=== PATIENT | female | born 1950 ===

== ENCOUNTER 2017-02-06 21:37 | Emergency (ER) | payer MEDICARE, OTHER ==
--- NOTE | 2017-02-06 22:24 | ED PDOC ---
HPI: Hypertension/Hypotension Time Seen by Provider: 02/06/17 22:05 Chief Complaint (Nursing): High Blood Pressure Chief Complaint (Provider): hypertension History Per: Patient History/Exam Limitations: no limitations Onset/Duration Of Symptoms: Days (2 weeks), Waxing/Waning Current Symptoms Are (Timing): Still Present Associated Symptoms: Headache Additional History Per: Patient, Family Additional Complaint(s): 66 y/o female history of hypertension, hyperlipidemia presents for eval of hypertension x 2 weeks. As per daughter, blood pressure medications were recently changed by primary doctor, but patient notes no improvement with new medications. Patient notes constant left frontal pressure headache today. Denies fever, nausea/vomiting, extremity numbness/weakness, chest pain, shortness of breath, palpitations, leg pain/swelling. Past Medical History Reviewed: Historical Data, Nursing Documentation, Vital Signs Vital Signs: Last Vital Signs Temp 98.2 F 02/06/17 22:01 Pulse 66 02/06/17 22:13 Resp 16 02/06/17 22:01 BP 178/91 H 02/06/17 22:13 Pulse Ox 100 02/06/17 22:01 - Medical History PMH: HTN, Hypercholesterolemia - Family History Family History: States: No Known Family Hx - Social History Current smoker - smoking cessation education provided: No Alcohol: None Drugs: Denies - Allergies Allergies/Adverse Reactions: Allergies Allergy/AdvReac Type Severity Reaction Status Date / Time shellfish derived Allergy RASH Verified 02/06/17 22:01 Review of Systems ROS Statement: Except As Marked, All Systems Reviewed And Found Negative Neurological: Positive for: Headache Physical Exam - Reviewed Nursing Documentation Reviewed: Yes Vital Signs Reviewed: Yes - Physical Exam Appears: Positive for: Well, Non-toxic, No Acute Distress Head Exam: Positive for: ATRAUMATIC, NORMAL INSPECTION, NORMOCEPHALIC Skin: Positive for: Normal Color Eye Exam: Positive for: Normal appearance ENT: Positive for: Normal ENT Inspection Cardiovascular/Chest: Positive for: Regular Rate, Rhythm Respiratory: Positive for: Normal Breath Sounds Gastrointestinal/Abdominal: Positive for: Normal Exam Back: Positive for: Normal Inspection Extremity: Positive for: Normal ROM Neurologic/Psych: Positive for: Alert, Oriented - Laboratory Results Result Diagrams: 02/06/17 22:25 02/06/17 22:25 - ECG ECG: Positive for: Viewed By Me (reviewed by ED attending) ECG Rhythm: Positive for: Sinus Rhythm O2 Sat by Pulse Oximetry: 100 - Progress ED Course And Treament: labs, ekg, CT head, Tylenol PO EXAM: CT Head Without Intravenous Contrast EXAM DATE/TIME: 02/06/2017 10:18 PM CLINICAL HISTORY: 66 years old, female; Pain; Headache; Headache not specified; Additional info: Headache, hypertension. Sent phy. Doc. TECHNIQUE: Axial computed tomography images of the head/brain without intravenous contrast. All CT scans at this facility use one or more dose reduction techniques, viz.: automated exposure control; ma/kV adjustment per patient size (including targeted exams where dose is matched to indication; i.e. head); or iterative reconstruction technique. Coronal and sagittal reformatted images were created and reviewed. COMPARISON: No relevant prior studies available. FINDINGS: No intracranial hemorrhage. No intracranial edema. No evidence of infarct. The sinuses and mastoid air cells are clear. IMPRESSION: No acute findings. On re-eval, patient states headache improved. BP improved. Patient educated on findings, discharged with instructions to follow up PMD 2-3 days. Return to ED for worsening/concerning symptoms. Disposition - Clinical Impression Clinical Impression: Hypertension, Headache - Patient ED Disposition Is Patient to be Admitted: No Counseled Patient/Family Regarding: Studies Performed, Diagnosis, Need For Followup - Disposition Disposition: Routine/Home Disposition Time: 23:51 Condition: IMPROVED Instructions: Acute Headache (ED), Hypertension (ED) Print Language: GREEK
[2017-02-06 22:29] LABS: BASO % 0.5 % (0.0-2.0); EOS # 0.1 K/uL (0.0-0.7); HEMATOCRIT 37.7 % (34.0-47.0); LYMPH # 2.9 K/uL (1.0-4.3); MEAN CELL VOLUME 88.2 fl (81.0-99.0); MEAN CORPUSCULAR HEMOGLOBIN 29.4 pg (27.0-31.0); MEAN CORPUSCULAR HGB CONC 33.3 g/dL (33.0-37.0); MONO # 0.9 K/uL (0.0-0.8); MONO % 8.6 % (0.0-10.0); NEUT # 6.3 K/uL (1.8-7.0); NEUT % 61.9 % (50.0-75.0); NRBC % 0.1 % (0.0-0.0); RED CELL DISTRIBUTION WIDTH 13.6 % (11.5-14.5); WHITE BLOOD COUNT 10.2 K/uL (4.8-10.8)
[2017-02-06 22:42] LABS: BLOOD UREA NITROGEN 15 mg/dl (7-17); CALCIUM 8.9 mg/dL (8.4-10.2); CARBON DIOXIDE 26 mmol/L (22-30); CHLORIDE 103 mmol/L (98-107); GFR AFRICAN-AMERICAN > 60; GLUCOSE,RANDOM 97 mg/dL (65-105); POTASSIUM 3.4 MMOL/L (3.6-5.0); SODIUM 139 mmol/l (132-148)
[2017-02-06] MEDS ORDERED: Potassium Chloride 20 mEq ER Tab PO ONE ×2 (23:04→23:14)
--- NOTE | 2017-02-06 23:06 | CT ---
EXAM: CT Head Without Intravenous Contrast EXAM DATE/TIME: 02/06/2017 10:18 PM CLINICAL HISTORY: 66 years old, female; Pain; Headache; Headache not specified; Additional info: Headache, hypertension. Sent phy. Doc. TECHNIQUE: Axial computed tomography images of the head/brain without intravenous contrast. All CT scans at this facility use one or more dose reduction techniques, viz.: automated exposure control; ma/kV adjustment per patient size (including targeted exams where dose is matched to indication; i.e. head); or iterative reconstruction technique. Coronal and sagittal reformatted images were created and reviewed. COMPARISON: No relevant prior studies available. FINDINGS: No intracranial hemorrhage. No intracranial edema. No evidence of infarct. The sinuses and mastoid air cells are clear. IMPRESSION: No acute findings.
[2017-02-06 23:18] VITALS: BP 149/78; PULSE 69; RESP 18; TEMP 97.8
[2017-02-06 23:52] VITALS: O2SAT 100
--- NOTE | 2017-02-08 11:34 | CARD ---
APPROVED REPORT EKG Measurement Heart [id number] <Conclusion> Normal sinus rhythm Normal ECG
== END 2017-02-07 00:04 | disposition home or self-care (01) ==
LOC: H.ER 21:37
DX: I10 Essential (primary) hypertension (principal); R51 Headache

== ENCOUNTER 2017-08-27 08:59 | Inpatient (IN) | payer MEDICARE ==
[2017-08-27 09:34] VITALS: BMI 29.5
[2017-08-27] MEDS ORDERED: Succinylcholine 200 mg/10 ml Inj IV ONE (10:09)
[2017-08-27] MEDS ORDERED: Midazolam 2 MG/2 ML VIAL ONE (10:09)
[2017-08-27] MEDS ORDERED: ePHEDrine 50 mg/ml Inj ONE (10:09)
[2017-08-27] MEDS ORDERED: Rocuronium 10 mg/ml (5 ml) ONE (10:09)
[2017-08-27] MEDS ORDERED: Propofol 10 mg/ml Inj (20 ML) ONE (10:09)
[2017-08-27] MEDS ORDERED: Lidocaine 4% (Laryng-O-Jet) Kit MM ONE (10:09)
[2017-08-27] MEDS ORDERED: Lactated Ringer's 1,000 ML IV ONE ×2 (10:20→12:30)
[2017-08-27] MEDS ORDERED: Lidocaine 2% Inj (20ml) ONE (10:24)
[2017-08-27] MEDS ORDERED: Absorbable Gelatin Sponge Size 100 ONE (10:24)
[2017-08-27] MEDS ORDERED: Bacitracin Ointment 30 GM TUBE ONE (10:24)
[2017-08-27] MEDS ORDERED: Bupivacaine 0.5% Inj(30mL) ONE (10:24)
[2017-08-27] MEDS ORDERED: Thrombin Topical 5,000 Int Units Spray Kit ONE (10:25)
[2017-08-27] MEDS ORDERED: EPINEPHrine 1 mg/ml (1:1000) Inj ONE (11:40)
[2017-08-27] MEDS ORDERED: Bupivacaine 0.5% 50 ML IJ ONE (11:45)
[2017-08-27] MEDS ORDERED: EPINEPHrine 1 mg/ml (1:1000) Inj IV ONE (11:45)
[2017-08-27] MEDS ORDERED: HYDROmorphone 0.5 mg/0.5 ml ISec IVP PRN (13:02)
--- NOTE | 2017-08-27 13:45 | PCM.SURG1 ---
Surgeon's Initial Post Op Note - Surgeon's Notes Surgeon: Karl Rod MD Manager Interface: Marine Harris PA-C; Daysi Jon Type of Anesthesia: General Endo Pre-Operative Diagnosis: right knee severe osteoarthritis Operative Findings: see op report Post-Operative Diagnosis: same as pre-op dx Operation Performed: R TKR Specimen/Specimens Removed: right knee bone and soft tissue Estimated Blood Loss: EBL {In ML}: 100 Date of Surgery/Procedure: 08/27/17 Time of Surgery/Procedure: 10:00
--- NOTE | 2017-08-27 14:26 | RAD ---
PROCEDURE: Right Knee Radiographs. HISTORY: s/p RTKR COMPARISON: Right knee series 2117. FINDINGS: BONES: PA seen to be status post right total knee replacement with distal femoral and proximal tibial prosthetic components in good apparent position. Postoperative soft tissue changes seen anteriorly and laterally predominantly but some are also seen medially. Skin jayy noted anteriorly. No fracture, subluxation or dislocation appreciated in the interval. JOINTS: As above. JOINT EFFUSION: As above. OTHER FINDINGS: None. IMPRESSION: Status post right total knee replacement with limited postoperative soft tissue changes as described above. No subluxation dislocation or interval fracture identified.
--- NOTE | 2017-08-27 15:31 | OP ---
PROCEDURE DATE: 08/27/2017 ATTENDING SURGEON: Karl Rod MD CLOTH REELER: Marine Harris PA-C PREOPERATIVE DIAGNOSES: Right knee osteoarthritis. POSTOPERATIVE DIAGNOSIS: Right knee osteoarthritis. PROCEDURE: Right total knee replacement. IMPLANTS SIZE: [employer]. Size 3 femur, size 3 tibia, 9 mm polyethylene insert, 31 mm patella button. ANESTHESIA TYPE: General. ESTIMATED BLOOD LOSS: 50 mL. SPECIMENS: None. COMPLICATIONS: None. HISTORY: The patient with prolonged history of right knee pain progressively getting worse despite extensive conservative management, which included activity modification, injections, anti-inflammatory modification and physical therapy. X-rays had revealed advanced arthritis. Patient was indicated for total knee replacement due to continued pain and limited mobility. I had a detailed discussion with the patient in the office explaining the nature of the surgery, alternatives of surgery, risks and benefits, rehabilitation protocol and surgical markings. Risks of surgery include but not limited to continued pain, lack of motion, infection, vascular injury, DVT / PE, nerve injury including peroneal nerve dysfunction, reflex sympathetic dystrophy, compartment syndrome, unforeseen medical and/or anesthesia complications, limb loss, and even . The patient expressed an understanding of the risks and possible benefits of the procedure, and is also aware of the alternatives to surgery. PROCEDURE: On the day of the surgery, the patient was admitted to pre-operative holding area. A laterality sheet was completed confirming the correct operative site. The correct surgical knee was marked in the holding area and informed consent was signed from the patient. Once again, I reviewed the risks and benefits of the surgery with the patient in detail. These risks include but are not limited to continued pain, lack of motion, infection, vascular injury, DVT / PE, nerve injury including peroneal nerve dysfunction, reflex sympathetic dystrophy, symptomatic hardware, need for further procedure and surgeries, instability, iatrogenic fractures, compartment syndrome, unforeseen medical and/or anesthesia complications, limb loss, and even . The patient expressed an understanding of the risks and possible benefits of the procedure, also aware of the alternatives to surgery and signed the informed consent. The patient was transported to the operating room and placed in the supine position, general anesthesia was obtained. A padded tourniquet was applied to patient's operative thigh and appropriate prophylactic antibiotics were given. The operative leg was draped and prepped in standard sterile manner. Timeout was completed, confirming patient's right knee to be the correct operative site. Using an Esmarch, the extremity was exsanguinated and tourniquet was inflated to 350 mmHg. The surgical incision markings were made using patella border, tibial tubercle, patella and quadriceps tendon. Using a 10 blade, a midline incision was made. Skin dissection was taken until the prepatellar fascia was identified and the corners of the patellar tendon were marked for proper closure at the end of the procedure. Using a fresh 10 blade, a medial parapatellar arthrotomy was performed. The knee was exposed in the standard manner. The deep MCL was elevated for exposure, medial and lateral menisci were removed, ACL and PCL were also transected. The tibia was subluxed anteriorly. Planned tibial cut was made with power saw, using extra-medullary guide, perpendicular to mechanical axis of the tibia. After the cut was made, the alignment was also checked and was found to be appropriate. Tibial cut surface was measured with trial base plate and it was noted that size 2 tibial baseplate was provide sufficient coverage without overhang. Tibial component was externally rotated and marked. Next, the knee was placed into 90 degrees of flexion. A drill hole was made within the femoral notch anterior to PCL insertion for placement of intramedullary femoral sary. Intramedullary femoral sary was inserted within the femoral canal and planned distal femoral cut was made. After the cut, knee was brought into full extension. Spacer blocks were used to check the extension balancing both in full extension and 30 degrees of flexion. It was found that size 9 mm trial spacer block allowed full extension with symmetric varus and valgus balancing. Next we proceed with Patella resurfacing. [place] patella width was found to 25 mm. Using the free-hand technique the arthritic patella surface was resected. Patella was sized using the guide and it was noted that 32 mm Patella dome button would be appropriate for the patient. Next the size of femoral component was determined using the posterior referencing guide. It was noted that a femur would be appropriate for this patient without causing any significant notching. A 4 x 1 cutting block was placed and flexion gap balancing was checked. The flexion gap was found to be symmetric to the extension gap. Anterior and posterior condyle, anterior and posterior chamfer cuts were made. Next, appropriate size box cut for femoral component was prepared using the guide. The femoral trial component was impacted onto the distal femur. Appropriate size tibial trial component was also placed on the cut surface of the tibia. Using the drill and punch, keel for tibial implant was prepared. Trial tibial tray was secured onto the tibia using pins. Different size trial polyethylene inserts were secured on to the trial tibial tray to critically assess the following parameters: Full range of motion, extension and flexion gap balancing, mid-flexion stability, anterior and posterior drawer, and patellar tracking. All parameter were found to be satisfactory with size 9 mm insert. All the trial components were removed. Implants were opened on the back table. Cement was mixed and we proceed with cement fixation of the implants. Tibial tray, femoral component and patellar dome button were secured with cement. Polyethylene insert was secured onto the tibial tray using locking mechanism. The knee was reduced and brought into full extension. Cement was allowed to harden until final component fixation. Knee was taken through the final range of motion for stability testing, and found to be satisfactory. 60 cc of custom cocktail mixture was injected into posterior capsule, MCL, LCL, quadriceps tendon, and patellar tendon. Wound was copiously irrigated with sterile antibiotic solution using pulse lavage. Arthrotomy was closed using heavy suture and wound was closed in standard manner. Patient was extubated, transferred to stretcher and taken to the recovery room. Post-operative instructions were provided, physical therapy consult was requested along with DVT prophylaxis and appropriate pain medications. During this procedure, I was assisted Marine Harris, who assisted in positioning the patient on the operating room table as well as transferring the patient from the operating room table to the recovery room stretcher. In addition, Marine Harris,assisted me during the actual operative procedure by positioning, protecting critical neurovascular structures, exposure of the joint, and proper positioning of the implants. The presence of Marine Harris,as my operative offset assistant press operator was medically necessary to ensure the utmost safety of the patient in the pre, intra-, and post-operative periods. Karl Rod MD CELINE
[2017-08-27] MEDS ORDERED: ceFAZolin 1 GM in Sodium Chloride 0.9% 100 ML IVPB ONE ×2 (16:30→22:30)
--- NOTE | 2017-08-27 17:33 | CP.PCM.HP ---
History of Present Illness - History of Present Illness History of Present Illness: 67 y/o F with PMHx of HTN and O/A is admitted to hospital s/p RTKR for knee O/ A. Patient denies LE pain, vomiting, nausea, abd pain, headache. As per patient she has been suffering from R/knee pain for about 1 year and difficulty walking. Denies LE numbness or tingling. Patient has no other complains. She is compliant with her home meds for HTN and high cholesterol. Present on Admission - Present on Admission Any Indicators Present on Admission: No Review of Systems - Review of Systems All systems: reviewed and no additional remarkable complaints except (those described on HPI) Past Patient History - Past Medical History & Family History Past Medical History?: Yes - Past Social History Smoking Status: Never Smoked Alcohol: None Drugs: Denies - CARDIAC Hx Hypercholesterolemia: Yes Hx Hypertension: Yes - PULMONARY Hx Respiratory Disorders: No - NEUROLOGICAL Hx Neurological Disorder: No - HEENT Hx HEENT Problems: No - RENAL Hx Chronic Kidney Disease: No - ENDOCRINE/METABOLIC Hx Endocrine Disorders: No - HEMATOLOGICAL/ONCOLOGICAL Hx Blood Disorders: No - MUSCULOSKELETAL/RHEUMATOLOGICAL Hx Musculoskeletal Disorders: Yes Hx Osteoarthritis: Yes Hx Unsteady Gait: Yes - GASTROINTESTINAL Hx Gastrointestinal Disorders: No - GENITOURINARY/GYNECOLOGICAL Hx Genitourinary Disorders: No - PSYCHIATRIC Hx Psychophysiologic Disorder: No Hx Substance Use: No - SURGICAL HISTORY Hx Surgeries: Yes Other/Comment: R shoulder rotator cuff repair. Carpal tunnel release both hands - ANESTHESIA Hx Anesthesia: Yes Hx Anesthesia Reactions: No Hx Malignant Hyperthermia: No Has any member of the family had a problem w/ anesthesia?: No Meds Allergies/Adverse Reactions: Allergies Allergy/AdvReac Type Severity Reaction Status Date / Time shellfish derived Allergy RASH Verified 08/27/17 09:32 Physical Exam - Constitutional Appears: Non-toxic, No Acute Distress - Head Exam Head Exam: ATRAUMATIC - Eye Exam Eye Exam: EOMI, PERRL - ENT Exam ENT Exam: Mucous Membranes Moist - Neck Exam Neck exam: Negative for: Tenderness - Respiratory Exam Respiratory Exam: Clear to Auscultation Bilateral, NORMAL BREATHING PATTERN. absent: Decreased Breath Sounds, Rales, Rhonchi, Wheezes, Respiratory Distress - Cardiovascular Exam Cardiovascular Exam: REGULAR RHYTHM, +S1, +S2. absent: Gallop, Systolic Murmur - GI/Abdominal Exam GI & Abdominal Exam: Normal Bowel Sounds, Soft. absent: Distended, Firm, Guarding, Rigid, Tenderness - Extremities Exam Extremities exam: Positive for: normal capillary refill, pedal pulses present. Negative for: calf tenderness Additional comments: Move toes B/L. NO signs of acute neurovascular compromise - Neurological Exam Neurological exam: Alert, Oriented x3 - Psychiatric Exam Psychiatric exam: Normal Affect, Normal Mood - Skin Skin Exam: Normal Color, Warm Results - Vital Signs Recent Vital Signs: Last Vital Signs Temp 98.4 F 08/27/17 17:10 Pulse 85 08/27/17 17:10 Resp 19 08/27/17 17:10 BP 109/67 08/27/17 17:10 Pulse Ox 96 08/27/17 15:42 - Labs Labs: Laboratory Results - last 24 hr 08/27/17 08/27/17 09:55 10:40 Blood Type AB POSITIVE Blood Type Confirm AB POSITIVE Antibody Screen Negative Crossmatch See Detail BBK History Checked No verified bt Assessment & Plan - Assessment and Plan (Free Text) Assessment: S/P RTKR POD0 C/W pain control Advance diet as tolerated Supportive measures PT Ortho consult HTN Controlled C/W home meds Monitor DVT prophylaxis ASA 325 mg BID
[2017-08-27] MEDS: oxyCODONE 10 mg ER Tab (oxyCONTIN) PO SCH (21:33)
[2017-08-28] MEDS ORDERED: Benzocaine/Menthol (Cepacol) Lozenge PO ONE (01:27)
[2017-08-28 06:45] LABS: BLOOD UREA NITROGEN 15 mg/dl (7-17); CALCIUM 8.2 mg/dL (8.4-10.2); GFR AFRICAN-AMERICAN > 60; GFR NON-AFRICAN AMERICAN 55
[2017-08-28 06:49] LABS: BASO % 0.1 % (0.0-2.0); HEMOGLOBIN 10.7 g/dL (12.0-16.0); LYMPH # 2.1 K/uL (1.0-4.3); LYMPH % 12.2 % (20.0-40.0); MEAN CELL VOLUME 88.1 fl (81.0-99.0); MEAN CORPUSCULAR HEMOGLOBIN 29.9 pg (27.0-31.0); MEAN PLATELET VOLUME 8.4 fl (7.2-11.7); MONO # 1.3 K/uL (0.0-0.8); MONO % 7.5 % (0.0-10.0); NEUT # 13.6 K/uL (1.8-7.0); NEUT % 80.2 % (50.0-75.0); RBC 3.58 Mil/uL (3.80-5.20); RED CELL DISTRIBUTION WIDTH 13.3 % (11.5-14.5)
[2017-08-28] MEDS: oxyCODONE 10 mg ER Tab (oxyCONTIN) PO SCH ×2 (08:15→21:21)
--- NOTE | 2017-08-28 08:42 | CP.PCM.PN ---
Subjective - Date & Time of Evaluation Date of Evaluation: 08/28/17 Time of Evaluation: 08:40 - Subjective Subjective: Orthopedic follow up, patient seen and examined with Dr. Rod Patient states she has only a little pain. Denies CP/SOB/dizziness, no new complaints. Objective - Vital Signs/Intake and Output Vital Signs (last 24 hours): Temp Pulse Resp BP Pulse Ox 98.9 F 80 20 119/67 95 08/28/17 03:33 08/28/17 08:16 08/28/17 03:33 08/28/17 08:16 08/28/17 03:33 - Medications Medications: Current Medications Acetaminophen (Tylenol 325mg Tab) 325 mg PO Q4 PRN PRN Reason: pain1-3 Amlodipine Besylate (Norvasc) 5 mg PO DAILY [facility] Last Admin: 08/28/17 08:16 Dose: 5 mg Aspirin (Aspirin) 325 mg PO BID [facility] Last Admin: 08/28/17 08:16 Dose: 325 mg Atenolol (Tenormin) 50 mg PO DAILY [facility] Atorvastatin Calcium (Lipitor) 20 mg PO HS [facility] Last Admin: 08/27/17 21:34 Dose: 20 mg Celecoxib (Celebrex) 100 mg PO Q12 [facility] Last Admin: 08/28/17 08:16 Dose: 100 mg Hydrochlorothiazide (Hydrodiuril) 25 mg PO DAILY [facility] Last Admin: 08/28/17 08:16 Dose: 25 mg Ketorolac Tromethamine (Toradol) 15 mg IM Q8 [facility] Stop: 08/29/17 23:59 Last Admin: 08/28/17 08:19 Dose: 15 mg Oxycodone HCl (Oxycontin Extended Release Tab) 10 mg PO Q12 [facility] Stop: 08/30/17 21:01 Last Admin: 08/28/17 08:15 Dose: 10 mg Oxycodone/Acetaminophen (Percocet 5/325 Mg Tab) 1 tab PO Q4 PRN PRN Reason: pain4-6 Stop: 08/30/17 14:07 Potassium Chloride (K-Dur 20 Meq Er Tab) 20 meq PO ONCE ONE Stop: 08/28/17 08:39 - Labs Labs: 08/28/17 05:35 08/28/17 05:35 - Extremities Exam Additional comments: RLE: +ROM ankle/toes, sensation intact +DP/PT pulses calves soft NT neg homans Assessment and Plan (1) Primary osteoarthritis of right knee Assessment & Plan: POD#1 s/p R TKR -PT/OT -VTE proph -d/c planning -encourage OOB labs in am replace K d/w Dr. Rod, agrees with above Status: Acute
--- NOTE | 2017-08-28 10:33 | CP.PCM.PN ---
Subjective - Date & Time of Evaluation Date of Evaluation: 08/28/17 Time of Evaluation: 07:35 - Subjective Subjective: Stable. alert and not acute distress. C/o L/leg pain since this morning. Denies vomiting, nausea, CP, SOB, changes in urination or stools. Tolerating PO. Afebrile Objective - Vital Signs/Intake and Output Vital Signs (last 24 hours): Temp Pulse Resp BP Pulse Ox 98.9 F 80 20 119/67 95 08/28/17 03:33 08/28/17 08:16 08/28/17 03:33 08/28/17 08:16 08/28/17 03:33 - Medications Medications: Current Medications Acetaminophen (Tylenol 325mg Tab) 325 mg PO Q4 PRN PRN Reason: pain1-3 Amlodipine Besylate (Norvasc) 5 mg PO DAILY [facility] Last Admin: 08/28/17 08:16 Dose: 5 mg Aspirin (Aspirin) 325 mg PO BID [facility] Last Admin: 08/28/17 08:16 Dose: 325 mg Atenolol (Tenormin) 50 mg PO DAILY [facility] Atorvastatin Calcium (Lipitor) 20 mg PO HS [facility] Last Admin: 08/27/17 21:34 Dose: 20 mg Celecoxib (Celebrex) 100 mg PO Q12 [facility] Last Admin: 08/28/17 08:16 Dose: 100 mg Hydrochlorothiazide (Hydrodiuril) 25 mg PO DAILY [facility] Last Admin: 08/28/17 08:16 Dose: 25 mg Ketorolac Tromethamine (Toradol) 15 mg IM Q8 [facility] Stop: 08/29/17 23:59 Last Admin: 08/28/17 08:19 Dose: 15 mg Oxycodone HCl (Oxycontin Extended Release Tab) 10 mg PO Q12 [facility] Stop: 08/30/17 21:01 Last Admin: 08/28/17 08:15 Dose: 10 mg Oxycodone/Acetaminophen (Percocet 5/325 Mg Tab) 1 tab PO Q4 PRN PRN Reason: pain4-6 Stop: 08/30/17 14:07 - Labs Labs: 08/28/17 05:35 08/28/17 05:35 - Constitutional Appears: Non-toxic - Eye Exam Eye Exam: EOMI, PERRL - ENT Exam ENT Exam: Mucous Membranes Moist - Respiratory Exam Respiratory Exam: Clear to Ausculation Bilateral, NORMAL BREATHING PATTERN. absent: Rales, Rhonchi, Wheezes, Respiratory Distress - Cardiovascular Exam Cardiovascular Exam: REGULAR RHYTHM, +S1, +S2. absent: Gallop - GI/Abdominal Exam GI & Abdominal Exam: Soft, Normal Bowel Sounds. absent: Distended, Firm, Guarding, Tenderness - Extremities Exam Extremities Exam: Normal Capillary Refill, Tenderness (left lower leg, diffuse) . absent: Pedal Edema Additional comments: No signs of acute neurovascular compromise - Neurological Exam Neurological Exam: Alert, Awake, Oriented x3 - Psychiatric Exam Psychiatric exam: Normal Affect, Normal Mood - Skin Skin Exam: Normal Color, Warm Assessment and Plan - Assessment and Plan (Free Text) Assessment: S/p R/TKR POD1 Stable Pain controlled with meds Anemia, Trombocitopenia and leukocitosis on todays CBC s/p Ancef 2g Yesterday Start PT Monitor CBC AM and VS Ortho recs appreciated
[2017-08-28] MEDS ORDERED: Simethicone 80 mg Chewtab PO PRN (10:34)
[2017-08-28] MEDS: Potassium Chloride 20 mEq ER Tab PO ONE ×2 (10:53→10:57)
[2017-08-28] MEDS: Oxycodone/Acetaminophen 5/325 mg Tab PO PRN (13:50)
[2017-08-29 06:13] LABS: HEMOGLOBIN 10.3 g/dL (12.0-16.0); MEAN CELL VOLUME 88.4 fl (81.0-99.0); MEAN CORPUSCULAR HEMOGLOBIN 30.3 pg (27.0-31.0); MEAN CORPUSCULAR HGB CONC 34.2 g/dL (33.0-37.0); RBC 3.39 Mil/uL (3.80-5.20); RED CELL DISTRIBUTION WIDTH 13.5 % (11.5-14.5); WHITE BLOOD COUNT 13.3 K/uL (4.8-10.8)
[2017-08-29 06:20] LABS: BLOOD UREA NITROGEN 17 mg/dl (7-17); GFR AFRICAN-AMERICAN > 60; GFR NON-AFRICAN AMERICAN > 60
[2017-08-29] MEDS: oxyCODONE 10 mg ER Tab (oxyCONTIN) PO SCH (08:36)
[2017-08-29] MEDS ORDERED: Potassium Chloride 20 mEq 100 ML IVPB ONE (09:00)
--- NOTE | 2017-08-29 09:35 | CP.PCM.PN ---
Subjective - Date & Time of Evaluation Date of Evaluation: 08/29/17 Time of Evaluation: 09:32 - Subjective Subjective: Patient states knee pain is controlled with pain medication. Denies CP/SOB/ dizziness. Objective - Vital Signs/Intake and Output Vital Signs (last 24 hours): Temp Pulse Resp BP Pulse Ox 99.0 F 92 H 19 102/57 L 96 08/29/17 08:03 08/29/17 08:38 08/29/17 08:03 08/29/17 08:38 08/29/17 08:03 - Medications Medications: Current Medications Acetaminophen (Tylenol 325mg Tab) 325 mg PO Q4 PRN PRN Reason: pain1-3 Amlodipine Besylate (Norvasc) 5 mg PO DAILY [facility] Last Admin: 08/29/17 08:37 Dose: 5 mg Aspirin (Aspirin) 325 mg PO BID [facility] Last Admin: 08/29/17 08:35 Dose: 325 mg Atenolol (Tenormin) 50 mg PO DAILY [facility] Last Admin: 08/29/17 08:38 Dose: 50 mg Atorvastatin Calcium (Lipitor) 20 mg PO HS [facility] Last Admin: 08/28/17 21:21 Dose: 20 mg Celecoxib (Celebrex) 100 mg PO Q12 [facility] Last Admin: 08/29/17 08:36 Dose: 100 mg Hydrochlorothiazide (Hydrodiuril) 25 mg PO DAILY [facility] Last Admin: 08/29/17 08:36 Dose: 25 mg Potassium Chloride (Potassium Chloride 20 Meq/100 Ml) 100 mls @ 50 mls/hr IVPB ONCE ONE Stop: 08/29/17 10:59 Ketorolac Tromethamine (Toradol) 15 mg IM Q8 [facility] Stop: 08/29/17 23:59 Last Admin: 08/29/17 08:38 Dose: 15 mg Oxycodone HCl (Oxycontin Extended Release Tab) 10 mg PO Q12 [facility] Stop: 08/30/17 21:01 Last Admin: 08/29/17 08:36 Dose: 10 mg Oxycodone/Acetaminophen (Percocet 5/325 Mg Tab) 1 tab PO Q4 PRN PRN Reason: pain4-6 Stop: 08/30/17 14:07 Last Admin: 08/28/17 13:50 Dose: 1 tab Simethicone (Mylicon Chew Tab) 80 mg PO TID PRN PRN Reason: Flatulence Last Admin: 08/28/17 10:54 Dose: 80 mg - Labs Labs: 08/29/17 05:50 08/29/17 05:50 - Extremities Exam Additional comments: Right knee: dressing change. Incision intact, scant sang drainage, no erythema, expected swelling. Patient in chair. +DP/PT pulses calves osft NT neg homans, sensation intact Assessment and Plan (1) Primary osteoarthritis of right knee Assessment & Plan: POD#2 s/p right TKR plan d/c to TCU orthopedically stable cont PT/OT/OOB patient refused potassium yesterday, now 3.0 will give 20meq IV now labs in am d/w Dr. Rod, agrees with above Status: Acute
[2017-08-29 11:15] VITALS: O2SAT 96
[2017-08-29] MEDS: Oxycodone/Acetaminophen 5/325 mg Tab PO PRN (14:00)
--- NOTE | 2017-08-29 14:36 | CP.PCM.DIS ---
Provider - Provider Date of Admission: 08/27/17 13:46 Attending physician: Tray Mak MD Primary care physician: Matty Pruitt Consults: Ortho Time Spent in preparation of Discharge (in minutes): 30 Diagnosis - Discharge Diagnosis (1) Primary osteoarthritis of right knee Status: Chronic (2) Status post knee replacement Status: Acute (3) Hypertension Status: Chronic Hospital Course - Lab Results Lab Results: Most Recent Lab Values WBC 13.3 K/uL (4.8-10.8) H 08/29/17 05:50 RBC 3.39 Mil/uL (3.80-5.20) L 08/29/17 05:50 Hgb 10.3 g/dL (12.0-16.0) L 08/29/17 05:50 Hct 30.0 % (34.0-47.0) L 08/29/17 05:50 MCV 88.4 fl (81.0-99.0) 08/29/17 05:50 MCH 30.3 pg (27.0-31.0) 08/29/17 05:50 MCHC 34.2 g/dL (33.0-37.0) 08/29/17 05:50 RDW 13.5 % (11.5-14.5) 08/29/17 05:50 Plt Count 185 K/uL (130-400) 08/29/17 05:50 MPV 8.4 fl (7.2-11.7) 08/28/17 05:35 Neut % (Auto) 80.2 % (50.0-75.0) H 08/28/17 05:35 Lymph % (Auto) 12.2 % (20.0-40.0) L 08/28/17 05:35 [place] % (Auto) 7.5 % (0.0-10.0) 08/28/17 05:35 Eos % (Auto) 0.0 % (0.0-4.0) 08/28/17 05:35 Baso % (Auto) 0.1 % (0.0-2.0) 08/28/17 05:35 Neut # (Auto) 13.6 K/uL (1.8-7.0) H 08/28/17 05:35 Lymph # (Auto) 2.1 K/uL (1.0-4.3) 08/28/17 05:35 [place] # (Auto) 1.3 K/uL (0.0-0.8) H 08/28/17 05:35 Eos # (Auto) 0.0 K/uL (0.0-0.7) 08/28/17 05:35 Baso # (Auto) 0.0 K/uL (0.0-0.2) 08/28/17 05:35 Sodium 138 mmol/l (132-148) 08/29/17 05:50 Potassium 3.0 MMOL/L (3.6-5.0) L 08/29/17 05:50 Chloride 100 mmol/L (98-107) 08/29/17 05:50 Carbon Dioxide 29 mmol/L (22-30) 08/29/17 05:50 Anion Gap 12 (10-20) 08/29/17 05:50 BUN 17 mg/dl (7-17) 08/29/17 05:50 Creatinine 0.9 mg/dl (0.7-1.2) 08/29/17 05:50 Est GFR ( Amer) > 60 08/29/17 05:50 Est GFR (Non-Af Amer) > 60 08/29/17 05:50 POC Glucose (mg/dL) 141 mg/dL (65-110) H 08/29/17 01:08 Random Glucose 115 mg/dL (65-105) H 08/29/17 05:50 Calcium 8.0 mg/dL (8.4-10.2) L 08/29/17 05:50 Blood Type AB POSITIVE 08/27/17 09:55 Blood Type Confirm AB POSITIVE 08/27/17 10:40 Antibody Screen Negative 08/27/17 09:55 Crossmatch See Detail 08/27/17 09:55 BBK History Checked No verified bt 08/27/17 09:55 - Hospital Course Hospital Course: 67 y/o with Hx of HTN and O/A presented to hosp for chronic knee pain and underwent R/knee replacement by Ortho 2 days ago. Patient started receiving PT services, pain was controlled with meds and potassium was replaced due to mild hypokalemia. BP meds restarted and patient VS remained stable during her admission. She had a slight leukocytosis that is almost normalized poss due to inflamm/sx related. Today after cleared by Prtho and stable she is DC to TCU to c/w PT services and ortho and primary care f/u. Discharge Exam - Head Exam Head Exam: ATRAUMATIC - Eye Exam Eye Exam: EOMI, PERRL - ENT Exam ENT Exam: Mucous Membranes Moist - Respiratory Exam Respiratory Exam: Clear to PA & Lateral, NORMAL BREATHING PATTERN, UNREMARKABLE - Cardiovascular Exam Cardiovascular Exam: REGULAR RHYTHM, +S1, +S2. absent: Gallop, Systolic Murmur - GI/Abdominal Exam GI & Abdominal Exam: Normal Bowel Sounds, Soft, Unremarkable. absent: Guarding , Tenderness - Extremities Exam Extremities exam: normal capillary refill, pedal edema, tenderness (R/LE), pedal pulses present - Back Exam Back exam: absent: CVA tenderness (L), CVA tenderness (R) - Neurological Exam Neurological exam: Alert, Oriented x3 - Psychiatric Exam Psychiatric exam: Normal Affect, Normal Mood - Skin Skin Exam: Normal Color, Warm Discharge Plan - Follow Up Plan Condition: STABLE Disposition: REHAB FACILITY/REHAB UNIT
[2017-08-29 15:48] VITALS: BP 111/63; PULSE 81; RESP 20; TEMP 99.4
--- NOTE | 2017-08-29 16:31 | US ---
PROCEDURE: Right lower extremity venous duplex Doppler. HISTORY: s/p TKR. leg pain/swelling COMPARISON: None available. TECHNIQUE: Common femoral, superficial femoral, popliteal and posterior tibial veins were evaluated. Flow was assessed with color Doppler, compressibility, assessment of phasic flow and augmentation response. FINDINGS: COMMON FEMORAL VEIN: Normal direction of flow, compressibility and augmentation response. SUPERFICIAL FEMORAL VEIN: Normal direction of flow, compressibility and augmentation response. POPLITEAL VEIN: Normal direction of flow, compressibility and augmentation response. POSTERIOR TIBIAL VEIN: Normal direction of flow, compressibility and augmentation response. OTHER FINDINGS: None. IMPRESSION: No evidence of deep venous thrombosis in the right lower extremity.
== END 2017-08-29 18:41 | DRG 470 ==
LOC: H.OPSURG 08:59 → H.MEDSURG1 13:46
PROVIDERS: ADMIT Family Medicine; ATTEND Family Medicine
PROC: 0SRC069 Replacement of Right Knee Joint with Oxidized Zirconium on Polyethylene Synthetic Substitute, Cemented, Open Approach (ICD-10-PCS; principal; 2017-08-27 14:45)
PROC: F07Z9FZ Gait Training/Functional Ambulation Treatment using Assistive, Adaptive, Supportive or Protective Equipment (ICD-10-PCS; 2017-08-28)
DX: M17.11 Unilateral primary osteoarthritis, right knee (principal); G89.29 Other chronic pain; E87.6 Hypokalemia; I10 Essential (primary) hypertension; E78.00 Pure hypercholesterolemia, unspecified; D64.9 Anemia, unspecified; D69.6 Thrombocytopenia, unspecified; D72.828 Other elevated white blood cell count; Z79.82 Long term (current) use of aspirin; Z91.013 Allergy to seafood

== ENCOUNTER 2017-08-29 14:04 | Inpatient (IN) | payer MEDICARE ==
[2017-08-29 19:31] VITALS: BMI 30.4
[2017-08-29] MEDS ORDERED: Simethicone 80 mg Chewtab PO PRN (19:57)
[2017-08-29] MEDS ORDERED: PRO AIR PO SCH (20:00)
[2017-08-29] MEDS ORDERED: Albuterol HFA 90 mcg/actuation (8 g) INH PRN (22:35)
[2017-08-30] MEDS: Oxycodone/Acetaminophen 5/325 mg Tab PO PRN ×5 (04:39→19:58)
[2017-08-30] MEDS: Lidocaine 5% Patch TD SCH (09:05)
--- NOTE | 2017-08-30 10:06 | CP.PCM.PN ---
Subjective - Date & Time of Evaluation Date of Evaluation: 08/30/17 Time of Evaluation: 09:45 - Subjective Subjective: S/P RTKR POD#3 Pt seen and examined at bedside, comfortable in bed Pt c/o mild right knee pain Pt denies SOB, chest pain, N/V/D, numbness/tingling RLE Objective - Vital Signs/Intake and Output Vital Signs (last 24 hours): Temp Pulse Resp BP Pulse Ox 99.3 F 93 H 20 126/62 90 L 08/30/17 09:08 08/30/17 09:08 08/30/17 09:08 08/30/17 09:08 08/30/17 09:08 - Medications Medications: Current Medications Acetaminophen (Tylenol 325mg Tab) 325 mg PO Q4 PRN PRN Reason: pain1-3 Albuterol (Ventolin Hfa 90 Mcg/Actuation (8 G)) 1 puff INH RQ6 PRN PRN Reason: Shortness of Breath Amlodipine Besylate (Norvasc) 5 mg PO DAILY [facility] Last Admin: 08/30/17 09:04 Dose: 5 mg Atenolol (Tenormin) 50 mg PO DAILY [facility] Last Admin: 08/30/17 09:04 Dose: 50 mg Atorvastatin Calcium (Lipitor) 20 mg PO HS [facility] Last Admin: 08/29/17 21:39 Dose: 20 mg Hydrochlorothiazide (Hydrodiuril) 25 mg PO DAILY [facility] Last Admin: 08/30/17 09:04 Dose: 25 mg Hydroxyzine HCl (Atarax) 25 mg PO TID [facility] Last Admin: 08/30/17 09:15 Dose: Not Given Lidocaine (Lidoderm) 1 ea TD DAILY [facility] Last Admin: 08/30/17 09:05 Dose: 1 ea Oxycodone/Acetaminophen (Percocet 5/325 Mg Tab) 1 tab PO Q4 PRN PRN Reason: pain4-6 Stop: 09/01/17 19:58 Last Admin: 08/30/17 09:13 Dose: 1 tab Simethicone (Mylicon Chew Tab) 80 mg PO TID PRN PRN Reason: Flatulence - Constitutional Appears: Well, No Acute Distress - Respiratory Exam Respiratory Exam: Clear to Ausculation Bilateral, NORMAL BREATHING PATTERN - Cardiovascular Exam Cardiovascular Exam: REGULAR RHYTHM, RRR - Extremities Exam Additional comments: RLE: Knee incision site C/D/I Calves soft and nontender b/l N/V intact distally Normal ROM at ankle Distal pulses wnl No foot drop Assessment and Plan - Assessment and Plan (Free Text) Assessment: 67 yo F s/p RTKR POD#3 Plan: Pain Control PT/OT - WBAT RLE DVT ppx F/U labs Continue current management
--- NOTE | 2017-08-30 14:12 | CP.PCM.HP ---
History of Present Illness - History of Present Illness History of Present Illness: This is a 67 y/o female admitted for TCU subacte rehab after TKR. Today is her post op day # 3. Except for low Hgb her immediate post op period was unremarkable. She had complained of pain on the right thigh but venous duplex scan was negative for DVT. She has a hx of HTN and hyperlipidemia and has been stable on medications. Has no chest pain or SOB Has no headaches, dizziness. Has minimal pain on op site. Present on Admission - Present on Admission Any Indicators Present on Admission: No History of DVT/PE: No History of Uncontrolled Diabetes: No Urinary Catheter: No Decubitus Ulcer Present: No Review of Systems - Musculoskeletal Musculoskeletal: Abnormal Gait, Arthralgias Past Patient History - Past Medical History & Family History Past Medical History?: Yes - Past Social History Smoking Status: Never Smoked - CARDIAC Hx Hypertension: Yes - PULMONARY Hx Respiratory Disorders: No - NEUROLOGICAL Hx Neurological Disorder: No - HEENT Hx HEENT Problems: No - RENAL Hx Chronic Kidney Disease: No - ENDOCRINE/METABOLIC Hx Endocrine Disorders: No - HEMATOLOGICAL/ONCOLOGICAL Hx Blood Disorders: No - MUSCULOSKELETAL/RHEUMATOLOGICAL Hx Arthritis: Yes - GASTROINTESTINAL Hx Gastrointestinal Disorders: No - GENITOURINARY/GYNECOLOGICAL Hx Genitourinary Disorders: No - PSYCHIATRIC Hx Psychophysiologic Disorder: No Hx Substance Use: No - SURGICAL HISTORY Hx Surgeries: Yes Other/Comment: R shoulder rotator cuff repair. Carpal tunnel release both hands - ANESTHESIA Hx Anesthesia: Yes Hx Anesthesia Reactions: No Hx Malignant Hyperthermia: No Has any member of the family had a problem w/ anesthesia?: No Meds Allergies/Adverse Reactions: Allergies Allergy/AdvReac Type Severity Reaction Status Date / Time shellfish derived Allergy RASH Verified 08/27/17 09:32 Physical Exam - Head Exam Head Exam: NORMAL INSPECTION - Eye Exam Eye Exam: Normal appearance - ENT Exam ENT Exam: Mucous Membranes Moist - Respiratory Exam Respiratory Exam: Clear to Auscultation Bilateral - Cardiovascular Exam Cardiovascular Exam: REGULAR RHYTHM - GI/Abdominal Exam GI & Abdominal Exam: Normal Bowel Sounds - Neurological Exam Neurological exam: CN II-XII Intact, Oriented x3 - Psychiatric Exam Psychiatric exam: Normal Mood Results - Vital Signs Recent Vital Signs: Last Vital Signs Temp 99.3 F 08/30/17 09:08 Pulse 85 08/30/17 09:52 Resp 20 08/30/17 09:08 BP 126/62 08/30/17 09:08 Pulse Ox 98 08/30/17 09:52 Assessment & Plan (1) Gait abnormality Status: Acute (2) Status post knee replacement Status: Acute (3) Hypertension Status: Chronic (4) Primary osteoarthritis of right knee Status: Chronic - Assessment and Plan (Free Text) Plan: Cont Phys therapy pain meds low salt diet cont all BP meds. will follow up up. cbc cmp in am
[2017-08-31] MEDS: Oxycodone/Acetaminophen 5/325 mg Tab PO PRN ×4 (00:48→22:19)
[2017-08-31 07:58] LABS: BASO # 0.1 K/uL (0.0-0.2); BASO % 0.4 % (0.0-2.0); EOS # 0.2 K/uL (0.0-0.7); EOS % 1.4 % (0.0-4.0); HEMOGLOBIN 10.8 g/dL (12.0-16.0); LYMPH # 2.8 K/uL (1.0-4.3); LYMPH % 19.9 % (20.0-40.0); MEAN CORPUSCULAR HEMOGLOBIN 29.4 pg (27.0-31.0); MEAN CORPUSCULAR HGB CONC 32.7 g/dL (33.0-37.0); MEAN PLATELET VOLUME 9.8 fl (7.2-11.7); MONO % 6.9 % (0.0-10.0); NEUT # 10.2 K/uL (1.8-7.0); NEUT % 71.4 % (50.0-75.0); RBC 3.66 Mil/uL (3.80-5.20); RED CELL DISTRIBUTION WIDTH 13.5 % (11.5-14.5); WHITE BLOOD COUNT 14.2 K/uL (4.8-10.8)
[2017-08-31 08:15] LABS: BLOOD UREA NITROGEN 13 mg/dl (7-17); GFR AFRICAN-AMERICAN > 60; GFR NON-AFRICAN AMERICAN > 60
[2017-08-31 08:16] LABS: ALB/GLOB RATIO 0.9 (1.0-2.1); ALBUMIN 3.4 g/dL (3.5-5.0); ALT/SGPT 57 U/L (9-52); AST/SGOT 57 U/L (14-36); CALCIUM 8.6 mg/dL (8.4-10.2)
[2017-08-31] MEDS: Lidocaine 5% Patch TD SCH (08:46)
[2017-08-31] MEDS ORDERED: Potassium Chloride 20 mEq ER Tab PO STA (11:22)
[2017-08-31] MEDS: Amoxicillin-Clav 875-125 mg Tab PO SCH ×2 (14:42→21:08)
[2017-08-31 16:17] VITALS: RESP 20
[2017-09-01] MEDS: Oxycodone/Acetaminophen 5/325 mg Tab PO PRN ×4 (04:11→19:14)
[2017-09-01 07:55] LABS: MEAN CELL VOLUME 89.5 fl (81.0-99.0); MEAN CORPUSCULAR HEMOGLOBIN 29.3 pg (27.0-31.0); MEAN CORPUSCULAR HGB CONC 32.8 g/dL (33.0-37.0); RBC 3.4 Mil/uL (3.80-5.20); RED CELL DISTRIBUTION WIDTH 13.2 % (11.5-14.5); WHITE BLOOD COUNT 11.8 K/uL (4.8-10.8)
[2017-09-01 07:59] LABS: ALB/GLOB RATIO 0.9 (1.0-2.1); ALBUMIN 3.1 g/dL (3.5-5.0); ALT/SGPT 60 U/L (9-52); AST/SGOT 58 U/L (14-36); BLOOD UREA NITROGEN 13 mg/dl (7-17); CALCIUM 8.5 mg/dL (8.4-10.2); GFR AFRICAN-AMERICAN > 60; GFR NON-AFRICAN AMERICAN > 60
[2017-09-01] MEDS: Lidocaine 5% Patch TD SCH (08:54)
[2017-09-01] MEDS: Amoxicillin-Clav 875-125 mg Tab PO SCH ×2 (08:56→21:16)
--- NOTE | 2017-09-01 23:58 | CP.PCM.PN ---
Subjective - Date & Time of Evaluation Date of Evaluation: 08/31/17 Time of Evaluation: 13:15 - Subjective Subjective: Noted low grade fever last night and elevated WBC Has no cough Wound is clean. has some constipation Has no fever. Objective - Vital Signs/Intake and Output Vital Signs (last 24 hours): Temp Pulse Resp BP Pulse Ox 98.2 F 88 20 134/62 93 L 09/01/17 22:10 09/01/17 22:10 09/01/17 22:10 09/01/17 22:10 09/01/17 22:10 - Medications Medications: Current Medications Acetaminophen (Tylenol 325mg Tab) 325 mg PO Q4 PRN PRN Reason: pain1-3 Last Admin: 08/31/17 10:29 Dose: 325 mg Albuterol (Ventolin Hfa 90 Mcg/Actuation (8 G)) 1 puff INH RQ6 PRN PRN Reason: Shortness of Breath Amlodipine Besylate (Norvasc) 5 mg PO DAILY [facility] Last Admin: 09/01/17 08:56 Dose: 5 mg Amoxicillin/Clavulanate Potassium (Augmentin 875 Mg-125 Mg Tab) 1 tab PO Q12 [facility] PRN Reason: Protocol Last Admin: 09/01/17 21:16 Dose: 1 tab Aspirin (Aspirin) 325 mg PO BID [facility] Last Admin: 09/01/17 17:40 Dose: 325 mg Atenolol (Tenormin) 50 mg PO DAILY [facility] Last Admin: 09/01/17 08:56 Dose: 50 mg Atorvastatin Calcium (Lipitor) 20 mg PO HS [facility] Last Admin: 09/01/17 21:15 Dose: 20 mg Docusate Sodium (Colace) 100 mg PO BID [facility] Last Admin: 09/01/17 17:38 Dose: 100 mg Hydrochlorothiazide (Hydrodiuril) 25 mg PO DAILY [facility] Last Admin: 09/01/17 08:55 Dose: 25 mg Hydroxyzine HCl (Atarax) 25 mg PO HS [facility] Last Admin: 09/01/17 21:15 Dose: 25 mg Lidocaine (Lidoderm) 1 ea TD DAILY [facility] Last Admin: 09/01/17 08:54 Dose: 1 ea Simethicone (Mylicon Chew Tab) 80 mg PO TID PRN PRN Reason: Flatulence - Labs Labs: 09/01/17 06:00 09/01/17 06:00 - Head Exam Head Exam: NORMAL INSPECTION - Eye Exam Eye Exam: Normal appearance - Respiratory Exam Respiratory Exam: Clear to Ausculation Bilateral - Cardiovascular Exam Cardiovascular Exam: REGULAR RHYTHM - GI/Abdominal Exam GI & Abdominal Exam: Normal Bowel Sounds - Neurological Exam Neurological Exam: CN II-XII Intact, Oriented x3 Assessment and Plan (1) Gait abnormality Status: Acute (2) Status post knee replacement Status: Acute (3) Hypertension Status: Chronic (4) Primary osteoarthritis of right knee Status: Chronic - Assessment and Plan (Free Text) Plan: Cont meds Cont tx Cont PT pain meds add lactulose nad dulcolax fleet enema if needed
--- NOTE | 2017-09-02 00:11 | CP.PCM.PN ---
Subjective - Date & Time of Evaluation Date of Evaluation: 09/01/17 Time of Evaluation: 12:20 - Subjective Subjective: Patient is doing better today Started on po antibiotics Has no chest pain or SOB Objective - Vital Signs/Intake and Output Vital Signs (last 24 hours): Temp Pulse Resp BP Pulse Ox 98.2 F 88 20 134/62 93 L 09/01/17 22:10 09/01/17 22:10 09/01/17 22:10 09/01/17 22:10 09/01/17 22:10 - Medications Medications: Current Medications Acetaminophen (Tylenol 325mg Tab) 325 mg PO Q4 PRN PRN Reason: pain1-3 Last Admin: 08/31/17 10:29 Dose: 325 mg Albuterol (Ventolin Hfa 90 Mcg/Actuation (8 G)) 1 puff INH RQ6 PRN PRN Reason: Shortness of Breath Amlodipine Besylate (Norvasc) 5 mg PO DAILY [facility] Last Admin: 09/01/17 08:56 Dose: 5 mg Amoxicillin/Clavulanate Potassium (Augmentin 875 Mg-125 Mg Tab) 1 tab PO Q12 [facility] PRN Reason: Protocol Last Admin: 09/01/17 21:16 Dose: 1 tab Aspirin (Aspirin) 325 mg PO BID [facility] Last Admin: 09/01/17 17:40 Dose: 325 mg Atenolol (Tenormin) 50 mg PO DAILY [facility] Last Admin: 09/01/17 08:56 Dose: 50 mg Atorvastatin Calcium (Lipitor) 20 mg PO HS [facility] Last Admin: 09/01/17 21:15 Dose: 20 mg Docusate Sodium (Colace) 100 mg PO BID [facility] Last Admin: 09/01/17 17:38 Dose: 100 mg Hydrochlorothiazide (Hydrodiuril) 25 mg PO DAILY [facility] Last Admin: 09/01/17 08:55 Dose: 25 mg Hydroxyzine HCl (Atarax) 25 mg PO HS [facility] Last Admin: 09/01/17 21:15 Dose: 25 mg Lidocaine (Lidoderm) 1 ea TD DAILY [facility] Last Admin: 09/01/17 08:54 Dose: 1 ea Simethicone (Mylicon Chew Tab) 80 mg PO TID PRN PRN Reason: Flatulence - Labs Labs: 09/01/17 06:00 09/01/17 06:00 - Head Exam Head Exam: NORMAL INSPECTION - Eye Exam Eye Exam: Normal appearance - Respiratory Exam Respiratory Exam: Clear to Ausculation Bilateral - Cardiovascular Exam Cardiovascular Exam: REGULAR RHYTHM - GI/Abdominal Exam GI & Abdominal Exam: Normal Bowel Sounds - Neurological Exam Neurological Exam: Alert, CN II-XII Intact, Oriented x3 - Psychiatric Exam Psychiatric exam: Anxious Assessment and Plan (1) Gait abnormality Status: Acute (2) Status post knee replacement Status: Acute (3) Hypertension Status: Chronic (4) Primary osteoarthritis of right knee Status: Chronic - Assessment and Plan (Free Text) Plan: Cont meds Cont tx Cont PT pain meds stool softener.
[2017-09-02] MEDS ORDERED: Oxycodone/Acetaminophen 5/325 mg Tab PO ONE (01:45)
[2017-09-02] MEDS: Amoxicillin-Clav 875-125 mg Tab PO SCH ×2 (08:43→21:39)
[2017-09-02] MEDS: Lidocaine 5% Patch TD SCH (08:44)
[2017-09-02] MEDS: Oxycodone/Acetaminophen 5/325 mg Tab PO PRN ×4 (08:47→23:36)
--- NOTE | 2017-09-02 15:01 | CP.PCM.PN ---
Subjective - Date & Time of Evaluation Date of Evaluation: 09/02/17 Time of Evaluation: 14:59 - Subjective Subjective: Patient complains of constipation and not feeling well. Has very poor appetite and claims that she does not have the energy to do PT. Has no chest pain or SOB. Has a lot of pain on the op site. Objective - Vital Signs/Intake and Output Vital Signs (last 24 hours): Temp Pulse Resp BP Pulse Ox 98.2 F 112 H 20 135/71 98 09/02/17 08:39 09/02/17 09:29 09/02/17 08:39 09/02/17 08:44 09/02/17 09:29 - Medications Medications: Current Medications Acetaminophen (Tylenol 325mg Tab) 325 mg PO Q4 PRN PRN Reason: pain1-3 Last Admin: 08/31/17 10:29 Dose: 325 mg Albuterol (Ventolin Hfa 90 Mcg/Actuation (8 G)) 1 puff INH RQ6 PRN PRN Reason: Shortness of Breath Amlodipine Besylate (Norvasc) 5 mg PO DAILY [facility] Last Admin: 09/02/17 08:43 Dose: 5 mg Amoxicillin/Clavulanate Potassium (Augmentin 875 Mg-125 Mg Tab) 1 tab PO Q12 [facility] PRN Reason: Protocol Last Admin: 09/02/17 08:43 Dose: 1 tab Aspirin (Aspirin) 325 mg PO BID [facility] Last Admin: 09/02/17 09:02 Dose: 325 mg Atenolol (Tenormin) 50 mg PO DAILY [facility] Last Admin: 09/02/17 08:44 Dose: 50 mg Atorvastatin Calcium (Lipitor) 20 mg PO [facility] Last Admin: 09/01/17 21:15 Dose: 20 mg Bisacodyl (Dulcolax) 10 mg PO [facility] Docusate Sodium (Colace) 100 mg PO TID [facility] Last Admin: 09/02/17 12:39 Dose: 100 mg Hydrochlorothiazide (Hydrodiuril) 25 mg PO DAILY [facility] Last Admin: 09/02/17 08:43 Dose: 25 mg Hydroxyzine HCl (Atarax) 25 mg PO HS [facility] Last Admin: 09/01/17 21:15 Dose: 25 mg Lactulose (Enulose) 20 gm PO DAILY PRN PRN Reason: Constipation Last Admin: 09/02/17 12:42 Dose: 20 gm Lidocaine (Lidoderm) 1 ea TD DAILY [facility] Last Admin: 09/02/17 08:44 Dose: 1 ea Oxycodone/Acetaminophen (Percocet 5/325 Mg Tab) 1 tab PO Q4 PRN PRN Reason: Pain, moderate (4-7) Stop: 09/05/17 08:42 Last Admin: 09/02/17 12:42 Dose: 1 tab Simethicone (Mylicon Chew Tab) 80 mg PO TID PRN PRN Reason: Flatulence - Labs Labs: 09/01/17 06:00 09/01/17 06:00 - Head Exam Head Exam: NORMAL INSPECTION - Eye Exam Eye Exam: Normal appearance - Respiratory Exam Respiratory Exam: Clear to Ausculation Bilateral - Cardiovascular Exam Cardiovascular Exam: REGULAR RHYTHM - GI/Abdominal Exam GI & Abdominal Exam: Normal Bowel Sounds - Extremities Exam Extremities Exam: Tenderness - Neurological Exam Neurological Exam: Awake, Oriented x3 Assessment and Plan (1) Gait abnormality Status: Acute (2) Status post knee replacement Status: Acute (3) Hypertension Status: Chronic (4) Primary osteoarthritis of right knee Status: Chronic (5) Constipation Status: Acute - Assessment and Plan (Free Text) Plan: Cont meds Cont tx Cont Pt add lactulose and fleet enema if needed add dulcolax increase water intake.
--- NOTE | 2017-09-02 15:07 | CP.PCM.PN ---
Subjective - Date & Time of Evaluation Date of Evaluation: 09/02/17 Time of Evaluation: 15:04 - Subjective Subjective: Patient states pain is well controlled. Denies CP/SOB/dizziness/numbness/ tingling. Objective - Vital Signs/Intake and Output Vital Signs (last 24 hours): Temp Pulse Resp BP Pulse Ox 98.2 F 112 H 20 135/71 98 09/02/17 08:39 09/02/17 09:29 09/02/17 08:39 09/02/17 08:44 09/02/17 09:29 - Medications Medications: Current Medications Acetaminophen (Tylenol 325mg Tab) 325 mg PO Q4 PRN PRN Reason: pain1-3 Last Admin: 08/31/17 10:29 Dose: 325 mg Albuterol (Ventolin Hfa 90 Mcg/Actuation (8 G)) 1 puff INH RQ6 PRN PRN Reason: Shortness of Breath Amlodipine Besylate (Norvasc) 5 mg PO DAILY [facility] Last Admin: 09/02/17 08:43 Dose: 5 mg Amoxicillin/Clavulanate Potassium (Augmentin 875 Mg-125 Mg Tab) 1 tab PO Q12 [facility] PRN Reason: Protocol Last Admin: 09/02/17 08:43 Dose: 1 tab Aspirin (Aspirin) 325 mg PO BID [facility] Last Admin: 09/02/17 09:02 Dose: 325 mg Atenolol (Tenormin) 50 mg PO DAILY [facility] Last Admin: 09/02/17 08:44 Dose: 50 mg Atorvastatin Calcium (Lipitor) 20 mg PO HS [facility] Last Admin: 09/01/17 21:15 Dose: 20 mg Bisacodyl (Dulcolax) 10 mg PO [facility] Docusate Sodium (Colace) 100 mg PO TID [facility] Last Admin: 09/02/17 12:39 Dose: 100 mg Hydrochlorothiazide (Hydrodiuril) 25 mg PO DAILY [facility] Last Admin: 09/02/17 08:43 Dose: 25 mg Hydroxyzine HCl (Atarax) 25 mg PO HS [facility] Last Admin: 09/01/17 21:15 Dose: 25 mg Lactulose (Enulose) 20 gm PO DAILY PRN PRN Reason: Constipation Last Admin: 09/02/17 12:42 Dose: 20 gm Lidocaine (Lidoderm) 1 ea TD DAILY [facility] Last Admin: 09/02/17 08:44 Dose: 1 ea Oxycodone/Acetaminophen (Percocet 5/325 Mg Tab) 1 tab PO Q4 PRN PRN Reason: Pain, moderate (4-7) Stop: 09/05/17 08:42 Last Admin: 09/02/17 12:42 Dose: 1 tab Simethicone (Mylicon Chew Tab) 80 mg PO TID PRN PRN Reason: Flatulence - Labs Labs: 09/01/17 06:00 09/01/17 06:00 - Extremities Exam Additional comments: +ROM ankle/toes, sensation intact +DP/PT pulses calves soft NT neg hoamns. significant ecchymosis to entire leg, incision intact, dry. +DP/PT pulses, toes warm. Assessment and Plan - Assessment and Plan (Free Text) Assessment: POD#6 s/p right TKR PT/OT VTE proph with aspirin francisco javier elevation ortho stable d/w Dr. Rod, notified of above
--- NOTE | 2017-09-02 18:29 | CP.PCM.CON ---
History of Present Illness - History of Present Illness History of Present Illness: Dr Maharaj PMR consultation on Lina Lopez, born 1950, who has been admitted to [facility] TCU following a right TKR. Post op + pain and 3 days of constipation. No dizziness, nausea, fever or chest pain. No numbness. She had been ambulating with a SC CONVERTIBLE SOFA BEDSPRING TESTER. Review of Systems - Constitutional Constitutional: absent: Anorexia, Chills - EENT Eyes: absent: Blind Spots Ears: absent: Ear Discharge Nose/Mouth/Throat: absent: Nasal Congestion - Cardiovascular Cardiovascular: absent: Chest Pain - Respiratory Respiratory: absent: Dyspnea - Gastrointestinal Gastrointestinal: Constipation - Musculoskeletal Musculoskeletal: absent: Back Pain - Integumentary Integumentary: absent: Bleeding Lesions - Neurological Neurological: absent: Abnormal Movements, Numbness Past Patient History - Past Medical History & Family History Past Medical History?: Yes - Past Social History Smoking Status: Never Smoked Alcohol: None Drugs: Denies Home Situation {Lives}: Alone (with elevator) - CARDIAC Hx Hypertension: Yes - PULMONARY Hx Respiratory Disorders: No - NEUROLOGICAL Hx Neurological Disorder: No - HEENT Hx HEENT Problems: No - RENAL Hx Chronic Kidney Disease: No - ENDOCRINE/METABOLIC Hx Endocrine Disorders: No - HEMATOLOGICAL/ONCOLOGICAL Hx Blood Disorders: No - MUSCULOSKELETAL/RHEUMATOLOGICAL Hx Arthritis: Yes - GASTROINTESTINAL Hx Gastrointestinal Disorders: No - GENITOURINARY/GYNECOLOGICAL Hx Genitourinary Disorders: No - PSYCHIATRIC Hx Psychophysiologic Disorder: No Hx Substance Use: No - SURGICAL HISTORY Hx Surgeries: Yes Other/Comment: R shoulder rotator cuff repair. Carpal tunnel release both hands - ANESTHESIA Hx Anesthesia: Yes Hx Anesthesia Reactions: No Hx Malignant Hyperthermia: No Has any member of the family had a problem w/ anesthesia?: No Meds Allergies/Adverse Reactions: Allergies Allergy/AdvReac Type Severity Reaction Status Date / Time shellfish derived Allergy RASH Verified 08/27/17 09:32 - Medications Medications: Current Medications Acetaminophen (Tylenol 325mg Tab) 325 mg PO Q4 PRN PRN Reason: pain1-3 Last Admin: 08/31/17 10:29 Dose: 325 mg Albuterol (Ventolin Hfa 90 Mcg/Actuation (8 G)) 1 puff INH RQ6 PRN PRN Reason: Shortness of Breath Amlodipine Besylate (Norvasc) 5 mg PO DAILY [facility] Last Admin: 09/02/17 08:43 Dose: 5 mg Amoxicillin/Clavulanate Potassium (Augmentin 875 Mg-125 Mg Tab) 1 tab PO Q12 [facility] PRN Reason: Protocol Last Admin: 09/02/17 08:43 Dose: 1 tab Aspirin (Aspirin) 325 mg PO BID [facility] Last Admin: 09/02/17 17:44 Dose: 325 mg Atenolol (Tenormin) 50 mg PO DAILY [facility] Last Admin: 09/02/17 08:44 Dose: 50 mg Atorvastatin Calcium (Lipitor) 20 mg PO HS [facility] Last Admin: 09/01/17 21:15 Dose: 20 mg Bisacodyl (Dulcolax) 10 mg PO [facility] Docusate Sodium (Colace) 100 mg PO TID [facility] Last Admin: 09/02/17 17:44 Dose: 100 mg Hydrochlorothiazide (Hydrodiuril) 25 mg PO DAILY [facility] Last Admin: 09/02/17 08:43 Dose: 25 mg Hydroxyzine HCl (Atarax) 25 mg PO [facility] Last Admin: 09/01/17 21:15 Dose: 25 mg Lactulose (Enulose) 20 gm PO DAILY PRN PRN Reason: Constipation Last Admin: 09/02/17 12:42 Dose: 20 gm Lidocaine (Lidoderm) 1 ea TD DAILY [facility] Last Admin: 09/02/17 08:44 Dose: 1 ea Oxycodone HCl (Oxycontin Extended Release Tab) 10 mg PO Q12 [facility] Stop: 09/05/17 21:01 Oxycodone/Acetaminophen (Percocet 5/325 Mg Tab) 1 tab PO Q4 PRN PRN Reason: Pain, moderate (4-7) Stop: 09/05/17 08:42 Last Admin: 09/02/17 17:45 Dose: 1 tab Simethicone (Mylicon Chew Tab) 80 mg PO TID PRN PRN Reason: Flatulence Physical Exam - Constitutional Appears: Well, Non-toxic, No Acute Distress - Head Exam Head Exam: ATRAUMATIC, NORMAL INSPECTION, NORMOCEPHALIC - Eye Exam Eye Exam: EOMI - ENT Exam ENT Exam: Mucous Membranes Moist - Respiratory Exam Respiratory Exam: NORMAL BREATHING PATTERN - Cardiovascular Exam Cardiovascular Exam: REGULAR RHYTHM - GI/Abdominal Exam GI & Abdominal Exam: absent: Distended, Firm - Extremities Exam Extremities exam: Negative for: calf tenderness, normal inspection (has ecchymosis in the LE) - Neurological Exam Neurological exam: Alert, CN II-XII Intact, Oriented x3 - Psychiatric Exam Psychiatric exam: Normal Affect, Normal Mood Results - Vital Signs Recent Vital Signs: Last Vital Signs Temp 99.0 F 09/02/17 16:42 Pulse 84 09/02/17 16:42 Resp 20 09/02/17 16:42 BP 127/65 09/02/17 16:42 Pulse Ox 94 L 09/02/17 16:42 - Labs Result Diagrams: 09/01/17 06:00 09/01/17 06:00 Assessment & Plan - Assessment and Plan (Free Text) Assessment: 67 year old female s/p right TKR I will add oxycontin 10mg she has had stool softener given constipation PT/OT to help increase functional independence
[2017-09-02] MEDS: oxyCODONE 10 mg ER Tab (oxyCONTIN) PO SCH (21:39)
[2017-09-02] MEDS: Bisacodyl 5mg EC Tab PO SCH (21:43)
[2017-09-03] MEDS: Oxycodone/Acetaminophen 5/325 mg Tab PO PRN ×2 (03:57→15:23)
[2017-09-03] MEDS: Lidocaine 5% Patch TD SCH (08:46)
[2017-09-03] MEDS: Amoxicillin-Clav 875-125 mg Tab PO SCH ×2 (08:47→21:12)
[2017-09-03] MEDS: oxyCODONE 10 mg ER Tab (oxyCONTIN) PO SCH ×2 (08:51→21:12)
[2017-09-03] MEDS: Bisacodyl 5mg EC Tab PO SCH (21:16)
[2017-09-04] MEDS: oxyCODONE 10 mg ER Tab (oxyCONTIN) PO SCH ×2 (08:30→21:22)
[2017-09-04] MEDS: Lidocaine 5% Patch TD SCH (08:33)
--- NOTE | 2017-09-04 09:05 | CP.PCM.PN ---
Subjective - Date & Time of Evaluation Date of Evaluation: 09/04/17 Time of Evaluation: 08:15 - Subjective Subjective: s/p RTKR POD#8 Pt seen and examined sitting in chair, comfortable, NAD Pt c/o mod right knee pain Pt denies SOB, chest pain, N/V/D, numbness/tingling RLE Objective - Vital Signs/Intake and Output Vital Signs (last 24 hours): Temp Pulse Resp BP Pulse Ox 98.2 F 86 20 133/71 99 09/04/17 08:16 09/04/17 08:31 09/04/17 08:16 09/04/17 08:32 09/04/17 08:16 - Medications Medications: Current Medications Acetaminophen (Tylenol 325mg Tab) 325 mg PO Q4 PRN PRN Reason: pain1-3 Last Admin: 08/31/17 10:29 Dose: 325 mg Albuterol (Ventolin Hfa 90 Mcg/Actuation (8 G)) 1 puff INH RQ6 PRN PRN Reason: Shortness of Breath Amlodipine Besylate (Norvasc) 5 mg PO DAILY [facility] Last Admin: 09/04/17 08:32 Dose: 5 mg Amoxicillin/Clavulanate Potassium (Augmentin 875 Mg-125 Mg Tab) 1 tab PO Q12 [facility] PRN Reason: Protocol Last Admin: 09/03/17 21:12 Dose: 1 tab Aspirin (Aspirin) 325 mg PO BID [facility] Last Admin: 09/04/17 08:30 Dose: 325 mg Atenolol (Tenormin) 50 mg PO DAILY [facility] Last Admin: 09/04/17 08:31 Dose: 50 mg Atorvastatin Calcium (Lipitor) 20 mg PO HS [facility] Last Admin: 09/03/17 21:12 Dose: 20 mg Bisacodyl (Dulcolax) 10 mg PO HS [facility] Last Admin: 09/03/17 21:16 Dose: 10 mg Celecoxib (Celebrex) 100 mg PO Q12 [facility] Last Admin: 09/04/17 08:29 Dose: 100 mg Docusate Sodium (Colace) 100 mg PO TID [facility] Last Admin: 09/04/17 08:31 Dose: 100 mg Hydrochlorothiazide (Hydrodiuril) 25 mg PO DAILY [facility] Last Admin: 09/04/17 08:33 Dose: 25 mg Hydroxyzine HCl (Atarax) 25 mg PO HS [facility] Last Admin: 09/03/17 21:12 Dose: 25 mg Lactulose (Enulose) 20 gm PO DAILY PRN PRN Reason: Constipation Last Admin: 09/03/17 21:14 Dose: 20 gm Lidocaine (Lidoderm) 1 ea TD DAILY [facility] Last Admin: 09/04/17 08:33 Dose: 1 ea Oxycodone HCl (Oxycontin Extended Release Tab) 10 mg PO Q12 [facility] Stop: 09/05/17 21:01 Last Admin: 09/04/17 08:30 Dose: 10 mg Oxycodone/Acetaminophen (Percocet 5/325 Mg Tab) 1 tab PO Q4 PRN PRN Reason: Pain, moderate (4-7) Stop: 09/05/17 08:42 Last Admin: 09/03/17 15:23 Dose: 1 tab Simethicone (Mylicon Chew Tab) 80 mg PO TID PRN PRN Reason: Flatulence - Labs Labs: 09/01/17 06:00 09/01/17 06:00 - Constitutional Appears: Well, No Acute Distress - Respiratory Exam Respiratory Exam: Clear to Ausculation Bilateral, NORMAL BREATHING PATTERN - Cardiovascular Exam Cardiovascular Exam: REGULAR RHYTHM, RRR - Extremities Exam Additional comments: RLE: Knee incision C/D/I Calves soft, compressible and nontender b/l N/V intact distally Distal pulses wnl Normal ROM at ankle Assessment and Plan - Assessment and Plan (Free Text) Assessment: 67 yo F s/p RTKR POD#8 Plan: Pain control DVT ppx PT/OT Continue current management
[2017-09-04] MEDS: Amoxicillin-Clav 875-125 mg Tab PO SCH ×2 (09:48→21:23)
--- NOTE | 2017-09-04 12:59 | CP.PCM.PN ---
Subjective - Date & Time of Evaluation Date of Evaluation: 09/03/17 Time of Evaluation: 13:00 - Subjective Subjective: mild knee pain no other complaints Objective - Vital Signs/Intake and Output Vital Signs (last 24 hours): Temp Pulse Resp BP Pulse Ox 98.2 F 86 20 133/71 99 09/04/17 08:16 09/04/17 08:31 09/04/17 08:16 09/04/17 08:32 09/04/17 08:16 - Medications Medications: Current Medications Acetaminophen (Tylenol 325mg Tab) 325 mg PO Q4 PRN PRN Reason: pain1-3 Last Admin: 08/31/17 10:29 Dose: 325 mg Albuterol (Ventolin Hfa 90 Mcg/Actuation (8 G)) 1 puff INH RQ6 PRN PRN Reason: Shortness of Breath Amlodipine Besylate (Norvasc) 5 mg PO DAILY [facility] Last Admin: 09/04/17 08:32 Dose: 5 mg Amoxicillin/Clavulanate Potassium (Augmentin 875 Mg-125 Mg Tab) 1 tab PO Q12 [facility] PRN Reason: Protocol Last Admin: 09/04/17 09:48 Dose: 1 tab Aspirin (Aspirin) 325 mg PO BID [facility] Last Admin: 09/04/17 08:30 Dose: 325 mg Atenolol (Tenormin) 50 mg PO DAILY [facility] Last Admin: 09/04/17 08:31 Dose: 50 mg Atorvastatin Calcium (Lipitor) 20 mg PO HS [facility] Last Admin: 09/03/17 21:12 Dose: 20 mg Bisacodyl (Dulcolax) 10 mg PO HS [facility] Last Admin: 09/03/17 21:16 Dose: 10 mg Celecoxib (Celebrex) 100 mg PO Q12 [facility] Last Admin: 09/04/17 08:29 Dose: 100 mg Docusate Sodium (Colace) 100 mg PO TID [facility] Last Admin: 09/04/17 08:31 Dose: 100 mg Hydrochlorothiazide (Hydrodiuril) 25 mg PO DAILY [facility] Last Admin: 09/04/17 08:33 Dose: 25 mg Hydroxyzine HCl (Atarax) 25 mg PO HS [facility] Last Admin: 09/03/17 21:12 Dose: 25 mg Lactulose (Enulose) 20 gm PO DAILY PRN PRN Reason: Constipation Last Admin: 09/03/17 21:14 Dose: 20 gm Lidocaine (Lidoderm) 1 ea TD DAILY [facility] Last Admin: 09/04/17 08:33 Dose: 1 ea Oxycodone HCl (Oxycontin Extended Release Tab) 10 mg PO Q12 [facility] Stop: 09/05/17 21:01 Last Admin: 09/04/17 08:30 Dose: 10 mg Oxycodone/Acetaminophen (Percocet 5/325 Mg Tab) 1 tab PO Q4 PRN PRN Reason: Pain, moderate (4-7) Stop: 09/05/17 08:42 Last Admin: 09/03/17 15:23 Dose: 1 tab Simethicone (Mylicon Chew Tab) 80 mg PO TID PRN PRN Reason: Flatulence - Labs Labs: 09/01/17 06:00 09/01/17 06:00 - Head Exam Head Exam: ATRAUMATIC, NORMAL INSPECTION, NORMOCEPHALIC - Eye Exam Eye Exam: EOMI, Normal appearance, PERRL Pupil Exam: NORMAL ACCOMODATION - ENT Exam ENT Exam: Mucous Membranes Moist, Normal Exam - Neck Exam Neck Exam: Full ROM, Normal Inspection - Respiratory Exam Respiratory Exam: NORMAL BREATHING PATTERN - Cardiovascular Exam Cardiovascular Exam: REGULAR RHYTHM - GI/Abdominal Exam GI & Abdominal Exam: Soft - Rectal Exam Rectal Exam: NORMAL INSPECTION - Exam External exam: NORMAL EXTERNAL EXAM - Extremities Exam Extremities Exam: Full ROM, Normal Capillary Refill - Back Exam Back Exam: NORMAL INSPECTION - Neurological Exam Neurological Exam: Alert, Awake Neuro motor strength exam: Left Upper Extremity: 4, Right Upper Extremity: 4, Left Lower Extremity: 4, Right Lower Extremity: 3 - Psychiatric Exam Psychiatric exam: Normal Affect, Normal Mood - Skin Skin Exam: Dry, Intact Assessment and Plan (1) Constipation Status: Acute (2) Gait abnormality Status: Acute (3) Headache Status: Acute (4) Status post knee replacement Assessment & Plan: plan fo rphysical, occupational therapy and pain management covering fo rDr strell Status: Acute (5) Hypertension Status: Chronic (6) Primary osteoarthritis of right knee Status: Chronic
--- NOTE | 2017-09-04 13:02 | CP.PCM.PN ---
Subjective - Date & Time of Evaluation Date of Evaluation: 09/04/17 Time of Evaluation: 11:30 - Subjective Subjective: patinet is feeling better less pain Objective - Vital Signs/Intake and Output Vital Signs (last 24 hours): Temp Pulse Resp BP Pulse Ox 98.2 F 86 20 133/71 99 09/04/17 08:16 09/04/17 08:31 09/04/17 08:16 09/04/17 08:32 09/04/17 08:16 - Medications Medications: Current Medications Acetaminophen (Tylenol 325mg Tab) 325 mg PO Q4 PRN PRN Reason: pain1-3 Last Admin: 08/31/17 10:29 Dose: 325 mg Albuterol (Ventolin Hfa 90 Mcg/Actuation (8 G)) 1 puff INH RQ6 PRN PRN Reason: Shortness of Breath Amlodipine Besylate (Norvasc) 5 mg PO DAILY [facility] Last Admin: 09/04/17 08:32 Dose: 5 mg Amoxicillin/Clavulanate Potassium (Augmentin 875 Mg-125 Mg Tab) 1 tab PO Q12 [facility] PRN Reason: Protocol Last Admin: 09/04/17 09:48 Dose: 1 tab Aspirin (Aspirin) 325 mg PO BID [facility] Last Admin: 09/04/17 08:30 Dose: 325 mg Atenolol (Tenormin) 50 mg PO DAILY [facility] Last Admin: 09/04/17 08:31 Dose: 50 mg Atorvastatin Calcium (Lipitor) 20 mg PO HS [facility] Last Admin: 09/03/17 21:12 Dose: 20 mg Bisacodyl (Dulcolax) 10 mg PO HS [facility] Last Admin: 09/03/17 21:16 Dose: 10 mg Celecoxib (Celebrex) 100 mg PO Q12 [facility] Last Admin: 09/04/17 08:29 Dose: 100 mg Docusate Sodium (Colace) 100 mg PO TID [facility] Last Admin: 09/04/17 08:31 Dose: 100 mg Hydrochlorothiazide (Hydrodiuril) 25 mg PO DAILY [facility] Last Admin: 09/04/17 08:33 Dose: 25 mg Hydroxyzine HCl (Atarax) 25 mg PO HS [facility] Last Admin: 09/03/17 21:12 Dose: 25 mg Lactulose (Enulose) 20 gm PO DAILY PRN PRN Reason: Constipation Last Admin: 09/03/17 21:14 Dose: 20 gm Lidocaine (Lidoderm) 1 ea TD DAILY [facility] Last Admin: 09/04/17 08:33 Dose: 1 ea Oxycodone HCl (Oxycontin Extended Release Tab) 10 mg PO Q12 [facility] Stop: 09/05/17 21:01 Last Admin: 09/04/17 08:30 Dose: 10 mg Oxycodone/Acetaminophen (Percocet 5/325 Mg Tab) 1 tab PO Q4 PRN PRN Reason: Pain, moderate (4-7) Stop: 09/05/17 08:42 Last Admin: 09/03/17 15:23 Dose: 1 tab Simethicone (Mylicon Chew Tab) 80 mg PO TID PRN PRN Reason: Flatulence - Labs Labs: 09/01/17 06:00 09/01/17 06:00 - Head Exam Head Exam: ATRAUMATIC, NORMAL INSPECTION, NORMOCEPHALIC - Eye Exam Eye Exam: EOMI, Normal appearance, PERRL Pupil Exam: NORMAL ACCOMODATION - ENT Exam ENT Exam: Mucous Membranes Moist, Normal Exam - Neck Exam Neck Exam: Full ROM, Normal Inspection - Respiratory Exam Respiratory Exam: NORMAL BREATHING PATTERN - Cardiovascular Exam Cardiovascular Exam: REGULAR RHYTHM - GI/Abdominal Exam GI & Abdominal Exam: Soft, Normal Bowel Sounds - Rectal Exam Rectal Exam: NORMAL INSPECTION - Exam External exam: NORMAL EXTERNAL EXAM - Extremities Exam Extremities Exam: Full ROM, Normal Capillary Refill, Normal Inspection - Back Exam Back Exam: NORMAL INSPECTION - Neurological Exam Neurological Exam: Alert, Awake Neuro motor strength exam: Left Upper Extremity: 4, Right Upper Extremity: 4, Left Lower Extremity: 4, Right Lower Extremity: 3 - Psychiatric Exam Psychiatric exam: Normal Affect, Normal Mood - Skin Skin Exam: Dry, Normal Color Assessment and Plan (1) Constipation Status: Acute (2) Gait abnormality Status: Acute (3) Headache Status: Acute (4) Status post knee replacement Assessment & Plan: plan for pt, ot therapy covering for Dr lawrence pain meds Status: Acute (5) Hypertension Status: Chronic (6) Primary osteoarthritis of right knee Status: Chronic
[2017-09-04] MEDS: Oxycodone/Acetaminophen 5/325 mg Tab PO PRN ×2 (15:55→20:11)
[2017-09-04] MEDS: Bisacodyl 5mg EC Tab PO SCH (21:23)
--- NOTE | 2017-09-05 00:31 | CP.PCM.PN ---
Subjective - Date & Time of Evaluation Date of Evaluation: 09/03/17 Time of Evaluation: 11:00 - Subjective Subjective: Patient complains of increased pain on the surg site. Has no chest pain or SOB Still with constipation Objective - Vital Signs/Intake and Output Vital Signs (last 24 hours): Temp Pulse Resp BP Pulse Ox 97.9 F 78 20 133/66 92 L 09/04/17 20:34 09/04/17 20:34 09/04/17 20:34 09/04/17 20:34 09/04/17 20:34 - Medications Medications: Current Medications Acetaminophen (Tylenol 325mg Tab) 325 mg PO Q4 PRN PRN Reason: pain1-3 Last Admin: 08/31/17 10:29 Dose: 325 mg Albuterol (Ventolin Hfa 90 Mcg/Actuation (8 G)) 1 puff INH RQ6 PRN PRN Reason: Shortness of Breath Amlodipine Besylate (Norvasc) 5 mg PO DAILY [facility] Last Admin: 09/04/17 08:32 Dose: 5 mg Amoxicillin/Clavulanate Potassium (Augmentin 875 Mg-125 Mg Tab) 1 tab PO Q12 [facility] PRN Reason: Protocol Last Admin: 09/04/17 21:23 Dose: 1 tab Aspirin (Aspirin) 325 mg PO BID [facility] Last Admin: 09/04/17 16:00 Dose: 325 mg Atenolol (Tenormin) 50 mg PO DAILY [facility] Last Admin: 09/04/17 08:31 Dose: 50 mg Atorvastatin Calcium (Lipitor) 20 mg PO HS [facility] Last Admin: 09/04/17 21:22 Dose: 20 mg Bisacodyl (Dulcolax) 10 mg PO HS [facility] Last Admin: 09/04/17 21:23 Dose: 10 mg Celecoxib (Celebrex) 100 mg PO Q12 [facility] Last Admin: 09/04/17 21:23 Dose: 100 mg Docusate Sodium (Colace) 100 mg PO TID [facility] Last Admin: 09/04/17 16:00 Dose: 100 mg Hydrochlorothiazide (Hydrodiuril) 25 mg PO DAILY [facility] Last Admin: 09/04/17 08:33 Dose: 25 mg Hydroxyzine HCl (Atarax) 25 mg PO HS [facility] Last Admin: 09/04/17 21:23 Dose: 25 mg Lactulose (Enulose) 20 gm PO DAILY PRN PRN Reason: Constipation Last Admin: 09/04/17 13:18 Dose: 20 gm Lidocaine (Lidoderm) 1 ea TD DAILY [facility] Last Admin: 09/04/17 08:33 Dose: 1 ea Oxycodone HCl (Oxycontin Extended Release Tab) 10 mg PO Q12 [facility] Stop: 09/05/17 21:01 Last Admin: 09/04/17 21:22 Dose: 10 mg Oxycodone/Acetaminophen (Percocet 5/325 Mg Tab) 1 tab PO Q4 PRN PRN Reason: Pain, moderate (4-7) Stop: 09/05/17 08:42 Last Admin: 09/04/17 20:11 Dose: 1 tab Simethicone (Mylicon Chew Tab) 80 mg PO TID PRN PRN Reason: Flatulence - Labs Labs: 09/01/17 06:00 09/01/17 06:00 - Head Exam Head Exam: NORMAL INSPECTION - Eye Exam Eye Exam: Normal appearance - ENT Exam ENT Exam: Mucous Membranes Moist - Respiratory Exam Respiratory Exam: Clear to Ausculation Bilateral - Cardiovascular Exam Cardiovascular Exam: REGULAR RHYTHM - GI/Abdominal Exam GI & Abdominal Exam: Normal Bowel Sounds - Psychiatric Exam Psychiatric exam: Normal Mood - Skin Skin Exam: Dry Assessment and Plan (1) Gait abnormality Status: Acute (2) Status post knee replacement Status: Acute (3) Hypertension Status: Chronic (4) Primary osteoarthritis of right knee Status: Chronic - Assessment and Plan (Free Text) Plan: Con tmeds Con ttx Cont PT pain meds.
--- NOTE | 2017-09-05 00:32 | CP.PCM.PN ---
Subjective - Date & Time of Evaluation Date of Evaluation: 09/04/17 Time of Evaluation: 10:30 - Subjective Subjective: Patient feels a lot better today Able to do therapy has less pain on the op site. Objective - Vital Signs/Intake and Output Vital Signs (last 24 hours): Temp Pulse Resp BP Pulse Ox 97.9 F 78 20 133/66 92 L 09/04/17 20:34 09/04/17 20:34 09/04/17 20:34 09/04/17 20:34 09/04/17 20:34 - Medications Medications: Current Medications Acetaminophen (Tylenol 325mg Tab) 325 mg PO Q4 PRN PRN Reason: pain1-3 Last Admin: 08/31/17 10:29 Dose: 325 mg Albuterol (Ventolin Hfa 90 Mcg/Actuation (8 G)) 1 puff INH RQ6 PRN PRN Reason: Shortness of Breath Amlodipine Besylate (Norvasc) 5 mg PO DAILY [facility] Last Admin: 09/04/17 08:32 Dose: 5 mg Amoxicillin/Clavulanate Potassium (Augmentin 875 Mg-125 Mg Tab) 1 tab PO Q12 [facility] PRN Reason: Protocol Last Admin: 09/04/17 21:23 Dose: 1 tab Aspirin (Aspirin) 325 mg PO BID [facility] Last Admin: 09/04/17 16:00 Dose: 325 mg Atenolol (Tenormin) 50 mg PO DAILY [facility] Last Admin: 09/04/17 08:31 Dose: 50 mg Atorvastatin Calcium (Lipitor) 20 mg PO HS [facility] Last Admin: 09/04/17 21:22 Dose: 20 mg Bisacodyl (Dulcolax) 10 mg PO HS [facility] Last Admin: 09/04/17 21:23 Dose: 10 mg Celecoxib (Celebrex) 100 mg PO Q12 [facility] Last Admin: 09/04/17 21:23 Dose: 100 mg Docusate Sodium (Colace) 100 mg PO TID [facility] Last Admin: 09/04/17 16:00 Dose: 100 mg Hydrochlorothiazide (Hydrodiuril) 25 mg PO DAILY [facility] Last Admin: 09/04/17 08:33 Dose: 25 mg Hydroxyzine HCl (Atarax) 25 mg PO HS [facility] Last Admin: 09/04/17 21:23 Dose: 25 mg Lactulose (Enulose) 20 gm PO DAILY PRN PRN Reason: Constipation Last Admin: 09/04/17 13:18 Dose: 20 gm Lidocaine (Lidoderm) 1 ea TD DAILY [facility] Last Admin: 09/04/17 08:33 Dose: 1 ea Oxycodone HCl (Oxycontin Extended Release Tab) 10 mg PO Q12 [facility] Stop: 09/05/17 21:01 Last Admin: 09/04/17 21:22 Dose: 10 mg Oxycodone/Acetaminophen (Percocet 5/325 Mg Tab) 1 tab PO Q4 PRN PRN Reason: Pain, moderate (4-7) Stop: 09/05/17 08:42 Last Admin: 09/04/17 20:11 Dose: 1 tab Simethicone (Mylicon Chew Tab) 80 mg PO TID PRN PRN Reason: Flatulence - Labs Labs: 09/01/17 06:00 09/01/17 06:00 - Head Exam Head Exam: NORMAL INSPECTION - Eye Exam Eye Exam: Normal appearance - ENT Exam ENT Exam: Mucous Membranes Moist - Respiratory Exam Respiratory Exam: Clear to Ausculation Bilateral - Cardiovascular Exam Cardiovascular Exam: REGULAR RHYTHM - GI/Abdominal Exam GI & Abdominal Exam: Normal Bowel Sounds - Skin Skin Exam: Dry Assessment and Plan (1) Gait abnormality Status: Acute (2) Status post knee replacement Status: Acute (3) Hypertension Status: Chronic (4) Primary osteoarthritis of right knee Status: Chronic - Assessment and Plan (Free Text) Plan: Cont meds Con ttx Cont PT Pain meds.
[2017-09-05] MEDS: Oxycodone/Acetaminophen 5/325 mg Tab PO PRN ×3 (03:33→17:59)
[2017-09-05] MEDS: Amoxicillin-Clav 875-125 mg Tab PO SCH ×2 (08:09→20:49)
[2017-09-05] MEDS: oxyCODONE 10 mg ER Tab (oxyCONTIN) PO SCH ×2 (08:12→20:50)
[2017-09-05] MEDS: Lidocaine 5% Patch TD SCH (10:30)
--- NOTE | 2017-09-05 21:10 | CP.PCM.PN ---
Subjective - Date & Time of Evaluation Date of Evaluation: 09/05/17 Time of Evaluation: 11:20 - Subjective Subjective: Patient is doing a lot better Has less pain on the knee Has no fever Objective - Vital Signs/Intake and Output Vital Signs (last 24 hours): Temp Pulse Resp BP Pulse Ox 98.6 F 81 20 120/66 98 09/05/17 20:41 09/05/17 20:41 09/05/17 20:41 09/05/17 20:41 09/05/17 20:41 - Medications Medications: Current Medications Acetaminophen (Tylenol 325mg Tab) 325 mg PO Q4 PRN PRN Reason: pain1-3 Last Admin: 08/31/17 10:29 Dose: 325 mg Albuterol (Ventolin Hfa 90 Mcg/Actuation (8 G)) 1 puff INH RQ6 PRN PRN Reason: Shortness of Breath Amlodipine Besylate (Norvasc) 5 mg PO DAILY [facility] Last Admin: 09/05/17 08:11 Dose: 5 mg Amoxicillin/Clavulanate Potassium (Augmentin 875 Mg-125 Mg Tab) 1 tab PO Q12 [facility] PRN Reason: Protocol Last Admin: 09/05/17 20:49 Dose: 1 tab Aspirin (Aspirin) 325 mg PO BID [facility] Last Admin: 09/05/17 17:04 Dose: 325 mg Atenolol (Tenormin) 50 mg PO DAILY [facility] Last Admin: 09/05/17 08:12 Dose: 50 mg Atorvastatin Calcium (Lipitor) 20 mg PO HS [facility] Last Admin: 09/04/17 21:22 Dose: 20 mg Bisacodyl (Dulcolax) 10 mg PO HS [facility] Last Admin: 09/04/17 21:23 Dose: 10 mg Celecoxib (Celebrex) 100 mg PO Q12 [facility] Last Admin: 09/05/17 20:50 Dose: 100 mg Docusate Sodium (Colace) 100 mg PO TID [facility] Last Admin: 09/05/17 17:04 Dose: 100 mg Hydrochlorothiazide (Hydrodiuril) 25 mg PO DAILY [facility] Last Admin: 09/05/17 08:10 Dose: 25 mg Hydroxyzine HCl (Atarax) 25 mg PO HS [facility] Last Admin: 09/04/17 21:23 Dose: 25 mg Lactulose (Enulose) 20 gm PO DAILY PRN PRN Reason: Constipation Last Admin: 09/04/17 13:18 Dose: 20 gm Lidocaine (Lidoderm) 1 ea TD DAILY [facility] Last Admin: 09/05/17 10:30 Dose: 1 ea Oxycodone/Acetaminophen (Percocet 5/325 Mg Tab) 1 tab PO Q4 PRN PRN Reason: Pain, moderate (4-7) Stop: 09/08/17 12:20 Last Admin: 09/05/17 17:59 Dose: 1 tab Simethicone (Mylicon Chew Tab) 80 mg PO TID PRN PRN Reason: Flatulence - Labs Labs: 09/01/17 06:00 09/01/17 06:00 - Head Exam Head Exam: NORMAL INSPECTION - Eye Exam Eye Exam: Normal appearance - ENT Exam ENT Exam: Mucous Membranes Moist - Respiratory Exam Respiratory Exam: Clear to Ausculation Bilateral - Cardiovascular Exam Cardiovascular Exam: REGULAR RHYTHM - GI/Abdominal Exam GI & Abdominal Exam: Normal Bowel Sounds Assessment and Plan (1) Gait abnormality Status: Acute (2) Status post knee replacement Status: Acute (3) Hypertension Status: Chronic (4) Primary osteoarthritis of right knee Status: Chronic - Assessment and Plan (Free Text) Plan: Cont meds Cont tx Cont PT Cont meds. pain meds.
[2017-09-05] MEDS: Bisacodyl 5mg EC Tab PO SCH (21:28)
[2017-09-06 08:10] VITALS: BP 137/67; PULSE 97; TEMP 98.2; O2SAT 100
[2017-09-06] MEDS: Oxycodone/Acetaminophen 5/325 mg Tab PO PRN (08:35)
[2017-09-06] MEDS ORDERED: oxyCODONE 10 mg ER Tab (oxyCONTIN) PO ONE (09:23)
[2017-09-06] MEDS: Amoxicillin-Clav 875-125 mg Tab PO SCH (09:26)
[2017-09-06] MEDS: Lidocaine 5% Patch TD SCH (09:28)
--- NOTE | 2017-09-06 10:52 | CP.PCM.PN ---
Subjective - Date & Time of Evaluation Date of Evaluation: 09/06/17 Time of Evaluation: 09:00 - Subjective Subjective: Patient seen and examined OOB to chair comfortable. Pain well controlled. No new complaints. Objective - Vital Signs/Intake and Output Vital Signs (last 24 hours): Temp Pulse Resp BP Pulse Ox 98.2 F 97 H 20 137/67 100 09/06/17 08:09 09/06/17 09:26 09/06/17 08:09 09/06/17 09:26 09/06/17 08:09 - Medications Medications: Current Medications Acetaminophen (Tylenol 325mg Tab) 325 mg PO Q4 PRN PRN Reason: pain1-3 Last Admin: 08/31/17 10:29 Dose: 325 mg Albuterol (Ventolin Hfa 90 Mcg/Actuation (8 G)) 1 puff INH RQ6 PRN PRN Reason: Shortness of Breath Amlodipine Besylate (Norvasc) 5 mg PO DAILY ON [facility] OF [facility] Last Admin: 09/06/17 09:26 Dose: 5 mg Amoxicillin/Clavulanate Potassium (Augmentin 875 Mg-125 Mg Tab) 1 tab PO Q12 ON LICENSE OF [facility] PRN Reason: Protocol Last Admin: 09/06/17 09:26 Dose: 1 tab Aspirin (Aspirin) 325 mg PO BID ON LICENSE OF [facility] Last Admin: 09/06/17 09:26 Dose: 325 mg Atenolol (Tenormin) 50 mg PO DAILY ON [facility] OF [facility] Last Admin: 09/06/17 09:26 Dose: 50 mg Atorvastatin Calcium (Lipitor) 20 mg PO [facility] Last Admin: 09/05/17 21:28 Dose: 20 mg Bisacodyl (Dulcolax) 10 mg PO [facility] Last Admin: 09/05/17 21:28 Dose: 10 mg Celecoxib (Celebrex) 100 mg PO Q12 ON LICENSE OF [facility] Last Admin: 09/06/17 09:27 Dose: 100 mg Docusate Sodium (Colace) 100 mg PO TID ON LICENSE OF [facility] Last Admin: 09/06/17 09:27 Dose: 100 mg Hydrochlorothiazide (Hydrodiuril) 25 mg PO DAILY ON [facility] Last Admin: 09/06/17 09:26 Dose: 25 mg Hydroxyzine HCl (Atarax) 25 mg PO [facility] Last Admin: 09/05/17 21:28 Dose: 25 mg Lactulose (Enulose) 20 gm PO DAILY PRN PRN Reason: Constipation Last Admin: 09/04/17 13:18 Dose: 20 gm Lidocaine (Lidoderm) 1 ea TD DAILY [facility] Last Admin: 09/06/17 09:28 Dose: 1 ea Oxycodone/Acetaminophen (Percocet 5/325 Mg Tab) 1 tab PO Q4 PRN PRN Reason: Pain, moderate (4-7) Stop: 09/08/17 12:20 Last Admin: 09/06/17 08:35 Dose: 1 tab Simethicone (Mylicon Chew Tab) 80 mg PO TID PRN PRN Reason: Flatulence - Labs Labs: 09/01/17 06:00 09/01/17 06:00 - Extremities Exam Additional comments: R knee: Dressings c/d/i, mild swelling and eccymosis from knee to leg improved sensation intact P/DP/TN motor intact EHL/FHL/G/TA pedal pulses intact calves soft and NT Assessment and Plan (1) Primary osteoarthritis of right knee Assessment & Plan: POD#10 from R TKA -pain control -ice and elevate RLE due to swelling, knee high compression stocking -PT/OT -above d/w Dr. Rod in agreement Status: Chronic
--- NOTE | 2017-09-06 11:49 | CP.PCM.DIS ---
<Angel Kearney - Last Filed: 09/06/17 13:55> Provider - Provider Date of Admission: 08/29/17 19:41 Attending physician: Tray Mak MD Primary care physician: Matty Pruitt Time Spent in preparation of Discharge (in minutes): 15 Diagnosis - Discharge Diagnosis (1) Status post knee replacement Status: Acute (2) Hypertension Status: Chronic (3) Primary osteoarthritis of right knee Status: Chronic Hospital Course - Lab Results Lab Results: Most Recent Lab Values WBC 11.8 K/uL (4.8-10.8) H 09/01/17 06:00 RBC 3.40 Mil/uL (3.80-5.20) L 09/01/17 06:00 Hgb 10.0 g/dL (12.0-16.0) L 09/01/17 06:00 Hct 30.4 % (34.0-47.0) L 09/01/17 06:00 MCV 89.5 fl (81.0-99.0) 09/01/17 06:00 MCH 29.3 pg (27.0-31.0) 09/01/17 06:00 MCHC 32.8 g/dL (33.0-37.0) L 09/01/17 06:00 RDW 13.2 % (11.5-14.5) 09/01/17 06:00 Plt Count 114 K/uL (130-400) L D 09/01/17 06:00 MPV 9.8 fl (7.2-11.7) 08/31/17 05:30 Neut % (Auto) 71.4 % (50.0-75.0) 08/31/17 05:30 Lymph % (Auto) 19.9 % (20.0-40.0) L 08/31/17 05:30 Sully % (Auto) 6.9 % (0.0-10.0) 08/31/17 05:30 Eos % (Auto) 1.4 % (0.0-4.0) 08/31/17 05:30 Baso % (Auto) 0.4 % (0.0-2.0) 08/31/17 05:30 Neut # (Auto) 10.2 K/uL (1.8-7.0) H 08/31/17 05:30 Lymph # (Auto) 2.8 K/uL (1.0-4.3) 08/31/17 05:30 Sully # (Auto) 1.0 K/uL (0.0-0.8) H 08/31/17 05:30 Eos # (Auto) 0.2 K/uL (0.0-0.7) 08/31/17 05:30 Baso # (Auto) 0.1 K/uL (0.0-0.2) 08/31/17 05:30 Sodium 137 mmol/l (132-148) 09/01/17 06:00 Potassium 3.9 MMOL/L (3.6-5.0) 09/01/17 06:00 Chloride 97 mmol/L (98-107) L 09/01/17 06:00 Carbon Dioxide 30 mmol/L (22-30) 09/01/17 06:00 Anion Gap 14 (10-20) 09/01/17 06:00 BUN 13 mg/dl (7-17) 09/01/17 06:00 Creatinine 0.9 mg/dl (0.7-1.2) 09/01/17 06:00 Est GFR ( Amer) > 60 09/01/17 06:00 Est GFR (Non-Af Amer) > 60 09/01/17 06:00 Random Glucose 116 mg/dL (65-105) H 09/01/17 06:00 Calcium 8.5 mg/dL (8.4-10.2) 09/01/17 06:00 Total Bilirubin 0.8 mg/dl (0.2-1.3) 09/01/17 06:00 AST 58 U/L (14-36) H 09/01/17 06:00 ALT 60 U/L (9-52) H 09/01/17 06:00 Alkaline Phosphatase 75 U/L (38-126) 09/01/17 06:00 Total Protein 6.6 G/DL (6.3-8.2) 09/01/17 06:00 Albumin 3.1 g/dL (3.5-5.0) L 09/01/17 06:00 Globulin 3.6 gm/dL (2.2-3.9) 09/01/17 06:00 Albumin/Globulin Ratio 0.9 (1.0-2.1) L 09/01/17 06:00 - Hospital Course Hospital Course: HPI: 67 y/o woman w/ pmh of HTN and osteoarthritis admitted to TCU for subacute rehab s/p right total knee replacement. Patient is POD10 and reports pain relieved w/ medication. Patient reports feeling better and improvement w/ physical therapy. The patient denies headaches, dizziness, chest pain, SOB, abdominal pain, nausae, vomiting, diarrhea, dysuria, or fever. The patient has been seen, examined, and deemed medically fit for discharge home. The patient is to follow up w/ Dr. Rod and PMD. The patient will be discharge w/ percocet PO Q6h for 5 days, aspirin 325 mg PO BID, colace 100 mg PO TID, and lactulose 20 mg PO daily. Discharge Exam - Head Exam Head Exam: NORMAL INSPECTION - Eye Exam Eye Exam: Normal appearance - ENT Exam ENT Exam: Mucous Membranes Moist - Neck Exam Neck exam: Full Rom - Respiratory Exam Respiratory Exam: Clear to PA & Lateral. absent: Accessory Muscle Use, Decreased Breath Sounds, Rales, Rhonchi, Wheezes, Respiratory Distress - Cardiovascular Exam Cardiovascular Exam: REGULAR RHYTHM. absent: Tachycardia - GI/Abdominal Exam GI & Abdominal Exam: Normal Bowel Sounds, Soft. absent: Distended, Tenderness - Extremities Exam Additional comments: right knee dressed, c/d/i, minimal edema, pedal pulses intact, mild tenderness - Neurological Exam Neurological exam: Alert, Oriented x3 Additional comments: ambulation requires assistance w/ rolling walker - Skin Skin Exam: Dry, Intact, Normal Color, Warm Discharge Plan - Discharge Medications Prescriptions: Aspirin 325 mg PO BID #60 tab Docusate [Colace] 100 mg PO TID #90 cap Lactulose [Enulose] 20 gm PO DAILY PRN #30 udc PRN Reason: Constipation oxyCODONE/Acetaminophen [Percocet 5/325 mg Tab] 1 tab PO Q6 PRN #20 tab PRN Reason: pain4-6 - Follow Up Plan Condition: GOOD Disposition: HOME/ ROUTINE Patient education suggested?: Yes Instructions: Constipation, Adult (DC), Total Knee Replacement (DC), Preventing Falls, Oxycodone and Acetaminophen, Postop Total Knee Replacement Exercises Lying Down, Postop Total Knee Replacement Exercises Seated or Standing Additional Instructions: Discharge home today, followup with PMD, call in one week. Followup with Orthopedic Surgeon, Dr. Calixto [phone]. Appointment for September 09, 2017 at 2:15pm. I was present during evaluation and discussed with Dr Caio june plans of care and tx. Tray Mak M.D. Referrals: Matty Pruitt MD [Primary Care Provider] - <Tray Mak - Last Filed: 09/07/17 23:38> Provider - Provider Date of Admission: 08/29/17 19:41 Attending physician: Tray Mak MD Primary care physician: Matty Pruitt Diagnosis - Discharge Diagnosis (1) Gait abnormality Status: Acute (2) Status post knee replacement Status: Acute (3) Hypertension Status: Chronic (4) Primary osteoarthritis of right knee Status: Chronic Hospital Course - Lab Results Lab Results: Most Recent Lab Values WBC 11.8 K/uL (4.8-10.8) H 09/01/17 06:00 RBC 3.40 Mil/uL (3.80-5.20) L 09/01/17 06:00 Hgb 10.0 g/dL (12.0-16.0) L 09/01/17 06:00 Hct 30.4 % (34.0-47.0) L 09/01/17 06:00 MCV 89.5 fl (81.0-99.0) 09/01/17 06:00 MCH 29.3 pg (27.0-31.0) 09/01/17 06:00 MCHC 32.8 g/dL (33.0-37.0) L 09/01/17 06:00 RDW 13.2 % (11.5-14.5) 09/01/17 06:00 Plt Count 114 K/uL (130-400) L D 09/01/17 06:00 MPV 9.8 fl (7.2-11.7) 08/31/17 05:30 Neut % (Auto) 71.4 % (50.0-75.0) 08/31/17 05:30 Lymph % (Auto) 19.9 % (20.0-40.0) L 08/31/17 05:30 Sully % (Auto) 6.9 % (0.0-10.0) 08/31/17 05:30 Eos % (Auto) 1.4 % (0.0-4.0) 08/31/17 05:30 Baso % (Auto) 0.4 % (0.0-2.0) 08/31/17 05:30 Neut # (Auto) 10.2 K/uL (1.8-7.0) H 08/31/17 05:30 Lymph # (Auto) 2.8 K/uL (1.0-4.3) 08/31/17 05:30 Sully # (Auto) 1.0 K/uL (0.0-0.8) H 08/31/17 05:30 Eos # (Auto) 0.2 K/uL (0.0-0.7) 08/31/17 05:30 Baso # (Auto) 0.1 K/uL (0.0-0.2) 08/31/17 05:30 Sodium 137 mmol/l (132-148) 09/01/17 06:00 Potassium 3.9 MMOL/L (3.6-5.0) 09/01/17 06:00 Chloride 97 mmol/L (98-107) L 09/01/17 06:00 Carbon Dioxide 30 mmol/L (22-30) 09/01/17 06:00 Anion Gap 14 (10-20) 09/01/17 06:00 BUN 13 mg/dl (7-17) 09/01/17 06:00 Creatinine 0.9 mg/dl (0.7-1.2) 09/01/17 06:00 Est GFR ( Amer) > 60 09/01/17 06:00 Est GFR (Non-Af Amer) > 60 09/01/17 06:00 Random Glucose 116 mg/dL (65-105) H 09/01/17 06:00 Calcium 8.5 mg/dL (8.4-10.2) 09/01/17 06:00 Total Bilirubin 0.8 mg/dl (0.2-1.3) 09/01/17 06:00 AST 58 U/L (14-36) H 09/01/17 06:00 ALT 60 U/L (9-52) H 09/01/17 06:00 Alkaline Phosphatase 75 U/L (38-126) 09/01/17 06:00 Total Protein 6.6 G/DL (6.3-8.2) 09/01/17 06:00 Albumin 3.1 g/dL (3.5-5.0) L 09/01/17 06:00 Globulin 3.6 gm/dL (2.2-3.9) 09/01/17 06:00 Albumin/Globulin Ratio 0.9 (1.0-2.1) L 09/01/17 06:00
--- NOTE | 2017-09-06 12:48 | CP.PCM.PN ---
Subjective - Date & Time of Evaluation Date of Evaluation: 09/06/17 Time of Evaluation: 09:15 - Subjective Subjective: no acute complaints at present Objective - Vital Signs/Intake and Output Vital Signs (last 24 hours): Temp Pulse Resp BP Pulse Ox 98.2 F 97 H 20 137/67 100 09/06/17 08:09 09/06/17 09:26 09/06/17 08:09 09/06/17 09:26 09/06/17 08:09 - Medications Medications: Current Medications Acetaminophen (Tylenol 325mg Tab) 325 mg PO Q4 PRN PRN Reason: pain1-3 Last Admin: 08/31/17 10:29 Dose: 325 mg Albuterol (Ventolin Hfa 90 Mcg/Actuation (8 G)) 1 puff INH RQ6 PRN PRN Reason: Shortness of Breath Amlodipine Besylate (Norvasc) 5 mg PO DAILY [facility] Last Admin: 09/06/17 09:26 Dose: 5 mg Amoxicillin/Clavulanate Potassium (Augmentin 875 Mg-125 Mg Tab) 1 tab PO Q12 [facility] PRN Reason: Protocol Last Admin: 09/06/17 09:26 Dose: 1 tab Aspirin (Aspirin) 325 mg PO BID [facility] Last Admin: 09/06/17 09:26 Dose: 325 mg Atenolol (Tenormin) 50 mg PO DAILY [facility] Last Admin: 09/06/17 09:26 Dose: 50 mg Atorvastatin Calcium (Lipitor) 20 mg PO HS [facility] Last Admin: 09/05/17 21:28 Dose: 20 mg Bisacodyl (Dulcolax) 10 mg PO HS [facility] Last Admin: 09/05/17 21:28 Dose: 10 mg Celecoxib (Celebrex) 100 mg PO Q12 [facility] Last Admin: 09/06/17 09:27 Dose: 100 mg Docusate Sodium (Colace) 100 mg PO TID [facility] Last Admin: 09/06/17 09:27 Dose: 100 mg Hydrochlorothiazide (Hydrodiuril) 25 mg PO DAILY [facility] Last Admin: 09/06/17 09:26 Dose: 25 mg Hydroxyzine HCl (Atarax) 25 mg PO HS [facility] Last Admin: 09/05/17 21:28 Dose: 25 mg Lactulose (Enulose) 20 gm PO DAILY PRN PRN Reason: Constipation Last Admin: 09/04/17 13:18 Dose: 20 gm Lidocaine (Lidoderm) 1 ea TD DAILY [facility] Last Admin: 09/06/17 09:28 Dose: 1 ea Oxycodone/Acetaminophen (Percocet 5/325 Mg Tab) 1 tab PO Q4 PRN PRN Reason: Pain, moderate (4-7) Stop: 09/08/17 12:20 Last Admin: 09/06/17 08:35 Dose: 1 tab Simethicone (Mylicon Chew Tab) 80 mg PO TID PRN PRN Reason: Flatulence - Labs Labs: 09/01/17 06:00 09/01/17 06:00 - Head Exam Head Exam: ATRAUMATIC, NORMAL INSPECTION, NORMOCEPHALIC - Eye Exam Eye Exam: EOMI, Normal appearance, PERRL Pupil Exam: NORMAL ACCOMODATION - ENT Exam ENT Exam: Mucous Membranes Moist, Normal Exam - Neck Exam Neck Exam: Full ROM, Normal Inspection - Respiratory Exam Respiratory Exam: NORMAL BREATHING PATTERN - Cardiovascular Exam Cardiovascular Exam: REGULAR RHYTHM - GI/Abdominal Exam GI & Abdominal Exam: Soft, Normal Bowel Sounds - Rectal Exam Rectal Exam: NORMAL INSPECTION - Exam External exam: NORMAL EXTERNAL EXAM - Extremities Exam Extremities Exam: Full ROM, Normal Capillary Refill - Back Exam Back Exam: NORMAL INSPECTION - Neurological Exam Neurological Exam: Alert, Awake Neuro motor strength exam: Left Upper Extremity: 4, Right Upper Extremity: 4, Left Lower Extremity: 4, Right Lower Extremity: 3 - Psychiatric Exam Psychiatric exam: Normal Affect, Normal Mood - Skin Skin Exam: Dry, Intact Assessment and Plan (1) Constipation Status: Acute (2) Gait abnormality Status: Acute (3) Headache Status: Acute (4) Status post knee replacement Assessment & Plan: plan for pt , ot therapy covering for Dr lawrence winkler for Sd home Status: Acute (5) Hypertension Status: Chronic (6) Primary osteoarthritis of right knee Status: Chronic
== END 2017-09-06 14:16 | disposition home or self-care (01) | DRG 561 ==
LOC: H.TCU 19:41
PROVIDERS: ADMIT Family Medicine; ATTEND Family Medicine
PROC: F08Z1FZ Dressing Techniques Treatment using Assistive, Adaptive, Supportive or Protective Equipment (ICD-10-PCS; principal; 2017-08-29)
PROC: F07Z9FZ Gait Training/Functional Ambulation Treatment using Assistive, Adaptive, Supportive or Protective Equipment (ICD-10-PCS; 2017-08-29)
PROC: F07Z5ZZ Bed Mobility Treatment (ICD-10-PCS; 2017-08-29)
PROC: F07L6ZZ Therapeutic Exercise Treatment of Musculoskeletal System - Lower Back / Lower Extremity (ICD-10-PCS; 2017-08-29)
DX: Z47.1 Aftercare following joint replacement surgery (principal); Z96.651 Presence of right artificial knee joint; E78.5 Hyperlipidemia, unspecified; I10 Essential (primary) hypertension; K59.00 Constipation, unspecified; R51 Headache; Z91.013 Allergy to seafood